=== PATIENT | male | born 1955 | race Caucasian/White ===

== ENCOUNTER → 2016-03-12 | Outpatient (CLI) | payer OTHER | LOC: RAD 10:17 | PROVIDERS: ATTEND Internal Medicine | DX: C34.12 Malignant neoplasm of upper lobe, left bronchus or lung (principal) | CPT/HCPCS: 70553; A9577 ==

== ENCOUNTER → 2016-03-16 | Outpatient (CLI) | payer OTHER | LOC: RAD 14:10 | PROVIDERS: ATTEND Internal Medicine | DX: C34.12 Malignant neoplasm of upper lobe, left bronchus or lung (principal) | CPT/HCPCS: 78815; A9552 ==

== ENCOUNTER 2016-03-27 08:19 | Outpatient (CLI) | payer OTHER ==
[~2016-03-27 08:19] MED LIST: CARBOPLATIN 250 MG in NORMAL SALINE 250 ML IV PRN; FAMOTIDINE INJ/PF 20 MG/2 ML SDV IV PRN; FOSAPREPITANT DIMEGLUMINE 150 MG in NORMAL SALINE 150 ML IV PRN; NORMAL SALINE 250 ML IV PRN; NORMAL SALINE IV PRN; ONDANSETRON HCL/PF 16 MG, DEXAMETHASONE SOD PHOSPHATE 10 MG in NORMAL SALINE 50 ML IV PRN; PACLITAXEL SEMI SYNTHETIC IV PRN
[2016-03-27] MEDS: DIPHENHYDRAMINE HCL 50 MG/ML VIAL IV PRN ×2 (10:51→11:15)
[2016-03-27 14:30] VITALS: BP 124/79
== END 2016-03-27 14:30 | disposition home or self-care (01) ==
LOC: II 08:19 → 5TH 08:22 → II 14:30
PROVIDERS: ATTEND Internal Medicine
PROC: 3E03305 Introduction of Other Antineoplastic into Peripheral Vein, Percutaneous Approach (ICD-10-PCS; principal; 2016-03-27)
PROC: 3E033GC Introduction of Other Therapeutic Substance into Peripheral Vein, Percutaneous Approach (ICD-10-PCS; 2016-03-27)
PROC: 3E0337Z Introduction of Electrolytic and Water Balance Substance into Peripheral Vein, Percutaneous Approach (ICD-10-PCS; 2016-03-27)
DX: Z51.11 Encounter for antineoplastic chemotherapy (principal); C34.12 Malignant neoplasm of upper lobe, left bronchus or lung
CPT/HCPCS: 96413; 96415; 96367; 96375; 96361; 96417; J1200; J9045; J2405; J7050; J9267; S0028; J1100; J1453; 96360; 96374

== ENCOUNTER 2016-04-03 11:41 | Outpatient (CLI) | payer OTHER ==
[~2016-04-03 11:41] MED LIST changes: +DIPHENHYDRAMINE HCL 50 MG/ML VIAL IV PRN
[2016-04-03 13:50] VITALS: BP 146/68
== END 2016-04-03 15:19 | disposition home or self-care (01) ==
LOC: II 11:41 → 5TH 11:45 → II 15:19
PROVIDERS: ATTEND Internal Medicine
PROC: 3E03305 Introduction of Other Antineoplastic into Peripheral Vein, Percutaneous Approach (ICD-10-PCS; principal; 2016-04-03)
PROC: 3E033GC Introduction of Other Therapeutic Substance into Peripheral Vein, Percutaneous Approach (ICD-10-PCS; 2016-04-03)
PROC: 3E0337Z Introduction of Electrolytic and Water Balance Substance into Peripheral Vein, Percutaneous Approach (ICD-10-PCS; 2016-04-03)
DX: Z51.11 Encounter for antineoplastic chemotherapy (principal); C34.12 Malignant neoplasm of upper lobe, left bronchus or lung
CPT/HCPCS: 96413; 96367; 96375; 96361; 96417; J1200; J9045; J2405; J7050; J9267; S0028; J1100; J1453; 96415

== ENCOUNTER 2016-04-10 09:27 | Outpatient (CLI) | payer OTHER ==
[2016-04-10 09:47] LABS: ABSOLUTE LYMPHOCYTES (AUTO) 0.6 10^3/uL (0.5-4.7); ABSOLUTE MONOCYTES (AUTO) 0.6 10^3/uL (0.1-1.4); ABSOLUTE NEUT (AUTO) 2.4 10^3/uL (1.7-8.2); BASOPHILS % (AUTO) 0.5 % (0-2); EOSINOPHILS % (AUTO) 1.3 % (0-6); HEMATOCRIT 47.6 % (37.9-51.0); HEMOGLOBIN 15.9 g/dL (13.5-17.0); HGB HCT DIFFERENCE 0.1; LYMPHOCYTES % (AUTO) 17.4 % (13-45); MEAN CORPUSCULAR HEMOGLOBIN 30.8 pg (27.0-33.4); MEAN CORPUSCULAR HGB CONC 33.5 g/dL (32.0-36.0); MEAN CORPUSCULAR VOLUME 92 fl (80-97); MONOCYTES % (AUTO) 16.3 % (3-13); RED BLOOD COUNT 5.18 10^6/uL (4.35-5.55); RED CELL DISTRIBUTION WIDTH 13.3 % (11.5-14.0); SEGMENTED NEUTROPHILS % (AUTO) 64.5 % (42-78); WHITE BLOOD COUNT 3.7 10^3/uL (4.0-10.5)
[2016-04-10 10:42] VITALS: BP 98/50
[2016-04-10 12:15] LABS: ALANINE AMINOTRANSFERASE 41 U/L (21-72); ALBUMIN 3.9 g/dL (3.5-5.0); ALKALINE PHOSPHATASE 112 U/L (38-126); ANION GAP 8 (5-19); ASPARTATE AMINO TRANSFERASE 28 U/L (17-59); BILIRUBIN,TOTAL 0.7 mg/dL (0.2-1.3); BLOOD UREA NITROGEN 8 mg/dL (7-20); CARBON DIOXIDE 29 mmol/L (22-30); CHLORIDE 95 mmol/L (98-107); CREATININE RESULT 0.68 mg/dL (0.52-1.25); GLUCOSE 105 mg/dL (75-110); POTASSIUM 5.1 mmol/L (3.6-5.0); SODIUM 131.8 mmol/L (137-145); TOTAL PROTEIN 6.8 g/dL (6.3-8.2)
== END 2016-04-10 14:07 | disposition home or self-care (01) ==
LOC: II 09:27 → 5TH 09:57 → II 14:07
PROVIDERS: ATTEND Internal Medicine
DX: Z51.11 Encounter for antineoplastic chemotherapy (principal); C34.12 Malignant neoplasm of upper lobe, left bronchus or lung; C77.1 Secondary and unspecified malignant neoplasm of intrathoracic lymph nodes
CPT/HCPCS: 96413; 96415; 96366; 96374; 96375; 96360; 36415; 85025; 80053; J1200; J9045; J2405; J7050; J9267; S0028; J1100; J1453

== ENCOUNTER 2016-04-17 09:53 | Outpatient (CLI) | payer OTHER ==
[2016-04-17 10:24] LABS: ABSOLUTE EOSINOPHILS # (AUTO) 0.1 10^3/uL (0.0-0.6); ABSOLUTE LYMPHOCYTES (AUTO) 0.6 10^3/uL (0.5-4.7); ABSOLUTE MONOCYTES (AUTO) 0.4 10^3/uL (0.1-1.4); ABSOLUTE NEUT (AUTO) 2.1 10^3/uL (1.7-8.2); BASOPHILS % (AUTO) 0.5 % (0-2); EOSINOPHILS % (AUTO) 1.8 % (0-6); HEMATOCRIT 42.3 % (37.9-51.0); HEMOGLOBIN 14.4 g/dL (13.5-17.0); HGB HCT DIFFERENCE 0.9; LYMPHOCYTES % (AUTO) 18.7 % (13-45); MEAN CORPUSCULAR HEMOGLOBIN 30.9 pg (27.0-33.4); MEAN CORPUSCULAR HGB CONC 34.2 g/dL (32.0-36.0); MEAN CORPUSCULAR VOLUME 91 fl (80-97); MONOCYTES % (AUTO) 13.4 % (3-13); RED BLOOD COUNT 4.67 10^6/uL (4.35-5.55); RED CELL DISTRIBUTION WIDTH 13.1 % (11.5-14.0); SEGMENTED NEUTROPHILS % (AUTO) 65.6 % (42-78); WHITE BLOOD COUNT 3.2 10^3/uL (4.0-10.5)
[2016-04-17 10:41] LABS: ALANINE AMINOTRANSFERASE 40 U/L (21-72); ALBUMIN 3.6 g/dL (3.5-5.0); ALKALINE PHOSPHATASE 121 U/L (38-126); ANION GAP 7 (5-19); ASPARTATE AMINO TRANSFERASE 27 U/L (17-59); BILIRUBIN,TOTAL 0.8 mg/dL (0.2-1.3); BLOOD UREA NITROGEN 8 mg/dL (7-20); CALCIUM 9.3 mg/dL (8.4-10.2); CARBON DIOXIDE 30 mmol/L (22-30); CHLORIDE 92 mmol/L (98-107); CREATININE RESULT 0.71 mg/dL (0.52-1.25); GLUCOSE 101 mg/dL (75-110); POTASSIUM 4.9 mmol/L (3.6-5.0); SODIUM 128.8 mmol/L (137-145); TOTAL PROTEIN 7.1 g/dL (6.3-8.2)
[2016-04-17 10:51] VITALS: BP 151/81
== END 2016-04-17 14:24 | disposition home or self-care (01) ==
LOC: II 09:53 → 5TH 10:05 → II 14:24
PROVIDERS: ATTEND Internal Medicine
PROC: 3E03305 Introduction of Other Antineoplastic into Peripheral Vein, Percutaneous Approach (ICD-10-PCS; principal; 2016-04-17)
PROC: 3E03305 Introduction of Other Antineoplastic into Peripheral Vein, Percutaneous Approach (ICD-10-PCS; 2016-04-17)
PROC: 3E033GC Introduction of Other Therapeutic Substance into Peripheral Vein, Percutaneous Approach (ICD-10-PCS; 2016-04-17)
PROC: 3E033GC Introduction of Other Therapeutic Substance into Peripheral Vein, Percutaneous Approach (ICD-10-PCS; 2016-04-17)
PROC: 3E0337Z Introduction of Electrolytic and Water Balance Substance into Peripheral Vein, Percutaneous Approach (ICD-10-PCS; 2016-04-17)
DX: C34.12 Malignant neoplasm of upper lobe, left bronchus or lung (principal); Z51.11 Encounter for antineoplastic chemotherapy
CPT/HCPCS: 96413; 96367; 96375; 96361; 96417; 36415; 85025; 80053; J1200; J9045; J2405; J7050; J9267; S0028; J1100; J1453; 96415

== ENCOUNTER 2016-04-24 09:48 | Outpatient (CLI) | payer OTHER, MEDICAID ==
[~2016-04-24 09:48] MED LIST changes: -CARBOPLATIN 250 MG in NORMAL SALINE 250 ML IV PRN; +CARBOPLATIN IV PRN; -NORMAL SALINE 250 ML IV PRN
[2016-04-24 10:15] VITALS: BP 131/71
[2016-04-24 10:48] LABS: ABSOLUTE LYMPHOCYTES (AUTO) 0.4 10^3/uL (0.5-4.7); ABSOLUTE MONOCYTES (AUTO) 0.2 10^3/uL (0.1-1.4); ABSOLUTE NEUT (AUTO) 1.8 10^3/uL (1.7-8.2); BASOPHILS % (AUTO) 0.3 % (0-2); EOSINOPHILS % (AUTO) 1.1 % (0-6); HEMATOCRIT 34.8 % (37.9-51.0); HEMOGLOBIN 12.1 g/dL (13.5-17.0); HGB HCT DIFFERENCE 1.5; LYMPHOCYTES % (AUTO) 15.6 % (13-45); MEAN CORPUSCULAR HEMOGLOBIN 31.2 pg (27.0-33.4); MEAN CORPUSCULAR HGB CONC 34.7 g/dL (32.0-36.0); MEAN CORPUSCULAR VOLUME 90 fl (80-97); MONOCYTES % (AUTO) 9.9 % (3-13); RED BLOOD COUNT 3.87 10^6/uL (4.35-5.55); RED CELL DISTRIBUTION WIDTH 12.7 % (11.5-14.0); SEGMENTED NEUTROPHILS % (AUTO) 73.1 % (42-78); WHITE BLOOD COUNT 2.5 10^3/uL (4.0-10.5)
[2016-04-24 11:04] LABS: ALANINE AMINOTRANSFERASE 30 U/L (21-72); ALBUMIN 3.7 g/dL (3.5-5.0); ALKALINE PHOSPHATASE 118 U/L (38-126); ANION GAP 8 (5-19); ASPARTATE AMINO TRANSFERASE 24 U/L (17-59); BILIRUBIN,TOTAL 0.8 mg/dL (0.2-1.3); BLOOD UREA NITROGEN 7 mg/dL (7-20); CALCIUM 8.8 mg/dL (8.4-10.2); CARBON DIOXIDE 28 mmol/L (22-30); CHLORIDE 92 mmol/L (98-107); CREATININE RESULT 0.72 mg/dL (0.52-1.25); GLUCOSE 77 mg/dL (75-110); POTASSIUM 4.2 mmol/L (3.6-5.0); SODIUM 128.3 mmol/L (137-145); TOTAL PROTEIN 6.8 g/dL (6.3-8.2)
[2016-04-24] MEDS: NORMAL SALINE 250 ML IV PRN ×2 (11:47→12:30)
== END 2016-04-24 15:11 | disposition home or self-care (01) ==
LOC: II 09:48 → 5TH 09:51 → II 15:11
PROVIDERS: ATTEND Internal Medicine
PROC: 3E033GC Introduction of Other Therapeutic Substance into Peripheral Vein, Percutaneous Approach (ICD-10-PCS; principal; 2016-04-24)
PROC: 3E033GC Introduction of Other Therapeutic Substance into Peripheral Vein, Percutaneous Approach (ICD-10-PCS; 2016-04-24)
PROC: 3E03305 Introduction of Other Antineoplastic into Peripheral Vein, Percutaneous Approach (ICD-10-PCS; 2016-04-24)
PROC: 3E03305 Introduction of Other Antineoplastic into Peripheral Vein, Percutaneous Approach (ICD-10-PCS; 2016-04-24)
DX: C34.12 Malignant neoplasm of upper lobe, left bronchus or lung (principal); Z51.11 Encounter for antineoplastic chemotherapy
CPT/HCPCS: 96413; 96367; 96375; 96417; 36415; 85025; 80053; J1200; J9045; J2405; J7050; J9267; S0028; J1100; J1453

== ENCOUNTER 2016-05-01 09:17 | Outpatient (CLI) | payer OTHER ==
[~2016-05-01 09:17] MED LIST changes: +CARBOPLATIN 250 MG in NORMAL SALINE 250 ML IV PRN; -CARBOPLATIN IV PRN; +NORMAL SALINE 250 ML IV PRN
[2016-05-01 09:55] LABS: HEMATOCRIT 34.2 % (37.9-51.0); HEMOGLOBIN 11.9 g/dL (13.5-17.0); HGB HCT DIFFERENCE 1.5; MEAN CORPUSCULAR HEMOGLOBIN 30.8 pg (27.0-33.4); MEAN CORPUSCULAR HGB CONC 34.9 g/dL (32.0-36.0); MEAN CORPUSCULAR VOLUME 88 fl (80-97); RED BLOOD COUNT 3.88 10^6/uL (4.35-5.55); RED CELL DISTRIBUTION WIDTH 12.5 % (11.5-14.0)
[2016-05-01 10:07] VITALS: BP 130/76
[2016-05-01 10:13] LABS: ALANINE AMINOTRANSFERASE 31 U/L (21-72); ALBUMIN 3.8 g/dL (3.5-5.0); ALKALINE PHOSPHATASE 84 U/L (38-126); ANION GAP 9 (5-19); ASPARTATE AMINO TRANSFERASE 24 U/L (17-59); BILIRUBIN,TOTAL 0.8 mg/dL (0.2-1.3); BLOOD UREA NITROGEN 7 mg/dL (7-20); CALCIUM 9.1 mg/dL (8.4-10.2); CARBON DIOXIDE 27 mmol/L (22-30); CHLORIDE 94 mmol/L (98-107); CREATININE RESULT 0.73 mg/dL (0.52-1.25); GLUCOSE 103 mg/dL (75-110); POTASSIUM 4.7 mmol/L (3.6-5.0); SODIUM 130.4 mmol/L (137-145); TOTAL PROTEIN 6.8 g/dL (6.3-8.2)
[2016-05-01 10:28] LABS: WHITE BLOOD COUNT 1.8 10^3/uL (4.0-10.5)
[2016-05-01 10:34] LABS: BAND NEUTROPHILS % (MANUAL) 1 % (3-5); BASOPHILS % (MANUAL) 0 % (0-2); EOSINOPHILS % (MANUAL) 2 % (0-6); LYMPHOCYTES % (MANUAL) 24 % (13-45); POLYCHROMASIA SLIGHT; TOTAL CELLS COUNTED 100; TOXIC GRANULATION SLIGHT
== END 2016-05-01 14:21 | disposition home or self-care (01) ==
LOC: II 09:17 → 5TH 09:18 → II 14:21
PROVIDERS: ATTEND Internal Medicine
PROC: 3E03305 Introduction of Other Antineoplastic into Peripheral Vein, Percutaneous Approach (ICD-10-PCS; principal; 2016-05-01)
PROC: 3E03305 Introduction of Other Antineoplastic into Peripheral Vein, Percutaneous Approach (ICD-10-PCS; 2016-05-01)
PROC: 3E033GC Introduction of Other Therapeutic Substance into Peripheral Vein, Percutaneous Approach (ICD-10-PCS; 2016-05-01)
PROC: 3E033GC Introduction of Other Therapeutic Substance into Peripheral Vein, Percutaneous Approach (ICD-10-PCS; 2016-05-01)
DX: C34.12 Malignant neoplasm of upper lobe, left bronchus or lung (principal); Z51.11 Encounter for antineoplastic chemotherapy
CPT/HCPCS: 96413; 96367; 96375; 96417; 36415; 85025; 80053; J1200; J9045; J2405; J7050; J9267; S0028; J1100; J1453; 96360; 96366; 96374; 96401; 96402; 96409; 96411

== ENCOUNTER → 2016-05-03 | Outpatient (CLI) | payer OTHER ==
[2016-05-03 15:29] LABS: HEMATOCRIT 34.4 % (37.9-51.0); HEMOGLOBIN 12.2 g/dL (13.5-17.0); HGB HCT DIFFERENCE 2.2; MEAN CORPUSCULAR HEMOGLOBIN 30.9 pg (27.0-33.4); MEAN CORPUSCULAR HGB CONC 35.4 g/dL (32.0-36.0); MEAN CORPUSCULAR VOLUME 87 fl (80-97); RED BLOOD COUNT 3.93 10^6/uL (4.35-5.55); RED CELL DISTRIBUTION WIDTH 12.7 % (11.5-14.0)
[2016-05-03 15:47] LABS: BASOPHILS % (MANUAL) 0 % (0-2); EOSINOPHILS % (MANUAL) 2 % (0-6); LYMPHOCYTES % (MANUAL) 18 % (13-45); TOTAL CELLS COUNTED 50
[2016-05-03 15:49] LABS: TOXIC GRANULATION SLIGHT; WHITE BLOOD COUNT 1.8 10^3/uL (4.0-10.5)
[2016-05-04 09:26] LABS: PATH REVIEW PATHOLOGIST REVIEWED
== END ==
LOC: LAB 15:03
PROVIDERS: ATTEND Radiology Radiation Oncology
DX: C34.12 Malignant neoplasm of upper lobe, left bronchus or lung (principal); C77.1 Secondary and unspecified malignant neoplasm of intrathoracic lymph nodes
CPT/HCPCS: 36415; 85025

== ENCOUNTER 2016-05-07 13:07 | Emergency (ER) | payer OTHER ==
--- NOTE | 2016-05-07 13:17 | ER Document Report ---
ED Medical Screen (RME) - General Chief Complaint: Shortness Of Breath Stated Complaint: SHORTNESS OF BREATH Mode of Arrival: Wheelchair Information source: Patient Notes: Patient presents from radiation oncology today with history of lung cancer with reports of fast heart rate, SOB. Pt denies CP. Reports he felt SOB. Reports hx of neuropathy. I have greeted and performed a rapid initial assessment of this patient. A comprehensive ED assessment and evaluation of the patient, analysis of test results and completion of the medical decision making process will be conducted by additional ED providers. TRAVEL OUTSIDE OF THE [place] IN LAST 30 DAYS: No - Related Data Allergies/Adverse Reactions: No Known Drug Allergies Allergy (Verified 05/07/16 13:10) Past Medical History - Social History Chew tobacco use (# tins/day): No Frequency of alcohol use: None Drug Abuse: None - Past Medical History Cardiac Medical History: Reports: Hx Hypertension Denies: Hx Coronary Artery Disease, Hx Heart Attack Pulmonary Medical History: Denies: Hx Asthma, Hx Bronchitis, Hx COPD, Hx Pneumonia, Hx Tuberculosis Neurological Medical History: Denies: Hx Cerebrovascular Accident, Hx Seizures Renal/ Medical History: Denies: Hx Peritoneal Dialysis Musculoskeltal Medical History: Reports Hx Arthritis - Knee's, feet Past Surgical History: Reports: Hx Appendectomy - Immunizations Hx Diphtheria, Pertussis, Tetanus Vaccination: Yes Physical Exam - Vital signs Vitals: Temp Pulse Resp BP Pulse Ox 97.4 F 84 20 108/66 100 05/07/16 13:10 05/07/16 13:10 05/07/16 13:10 05/07/16 13:10 05/07/16 13:10 Course - Vital Signs Vital signs: Temp Pulse Resp BP Pulse Ox 97.4 F 109 H 19 135/79 H 97 05/07/16 13:10 05/07/16 17:00 05/07/16 17:01 05/07/16 17:01 05/07/16 17:01 - Laboratory Result Diagrams: 05/07/16 13:40 05/07/16 13:30 Laboratory results interpreted by me: 05/07/16 05/07/16 05/07/16 13:30 13:40 13:40 WBC 1.5 L* RBC 3.59 L Hgb 11.2 L Hct 31.5 L Abs Neuts (Manual) 1.1 L Abs Lymphs (Manual) 0.3 L Sodium 128.1 L Chloride 95 L BUN 6 L NT-Pro-B Natriuret Pep 1710 H Doctor's Discharge - Discharge Clinical Impression: Dehydration, transient tachycardia Condition: Good Disposition: HOME, SELF-CARE Instructions: Dehydration ([facility]), Sinus Tachycardia ([facility]) Additional Instructions: Your vital signs have improved with IV hydration today. More likely were dehydrated. Your lab work and CT scan of her chest showed no signs of infection or PE. Please follow-up with your doctor tomorrow please drink plenty of fluids to stay hydrated at home. Referrals: KELLY HENDRIX MD [Primary Care Provider] - Follow up tomorrow
--- NOTE | 2016-05-07 13:48 | EKG REPORT ---
SEVERITY:- ABNORMAL ECG - SINUS TACHYCARDIA PROBABLE LEFT ATRIAL ABNORMALITY PROBABLE INFERIOR INFARCT, OLD : Confirmed by: Mayur Adams 07-May-2016 13:48:18
[2016-05-07 14:09] LABS: HEMATOCRIT 31.5 % (37.9-51.0); HEMOGLOBIN 11.2 g/dL (13.5-17.0); HGB HCT DIFFERENCE 2.1; MEAN CORPUSCULAR HEMOGLOBIN 31.1 pg (27.0-33.4); MEAN CORPUSCULAR HGB CONC 35.5 g/dL (32.0-36.0); MEAN CORPUSCULAR VOLUME 88 fl (80-97); RED BLOOD COUNT 3.59 10^6/uL (4.35-5.55); RED CELL DISTRIBUTION WIDTH 12.8 % (11.5-14.0)
[2016-05-07] MEDS ORDERED: NORMAL SALINE 1000 ML 1,000 ML IV ONE ×2 (14:17)
[2016-05-07 14:23] LABS: ALANINE AMINOTRANSFERASE 31 U/L (21-72); ALBUMIN 3.5 g/dL (3.5-5.0); ALKALINE PHOSPHATASE 83 U/L (38-126); ANION GAP 8 (5-19); ASPARTATE AMINO TRANSFERASE 21 U/L (17-59); BILIRUBIN,TOTAL 0.7 mg/dL (0.2-1.3); BLOOD UREA NITROGEN 6 mg/dL (7-20); CARBON DIOXIDE 25 mmol/L (22-30); CHLORIDE 95 mmol/L (98-107); GLUCOSE 103 mg/dL (75-110); POTASSIUM 4.1 mmol/L (3.6-5.0); SODIUM 128.1 mmol/L (137-145); TOTAL PROTEIN 6.4 g/dL (6.3-8.2)
[2016-05-07 14:28] LABS: PROTHROMBIN TIME 14.4 SEC (11.4-15.4)
[2016-05-07 14:29] LABS: PARTIAL THROMBOPLASTIN TIME 30.3 SEC (23.5-35.8)
[2016-05-07 14:33] LABS: WHITE BLOOD COUNT 1.5 10^3/uL (4.0-10.5)
[2016-05-07 15:08] LABS: BASOPHILS % (MANUAL) 0 % (0-2); EOSINOPHILS % (MANUAL) 0 % (0-6); LYMPHOCYTES % (MANUAL) 16 % (13-45); TOTAL CELLS COUNTED 50
[2016-05-07 15:09] LABS: RBC MORPHOLOGY COMMENT NORMO-CYTIC/CHROMIC; TOXIC GRANULATION 1+
--- NOTE | 2016-05-07 17:23 | ER Document Report ---
ED General - General Chief Complaint: Shortness Of Breath Stated Complaint: SHORTNESS OF BREATH Mode of Arrival: Wheelchair TRAVEL OUTSIDE OF THE [place] IN LAST 30 DAYS: No - HPI Patient complains to provider of: shortness of breath and tachycardia Notes: Patient coming in for evaluation of shortness of breath and tachycardia patient has a history of lung cancer and was receiving chemotherapy today when symptoms started patient's heart rate increased to approximately 160 patient was referred to the ER for further evaluation. Upon my evaluation patient is now resting at 130. Patient has no symptoms denies any shortness of breath denies any chest pain abdominal pain nausea vomiting fevers chills. - Related Data Allergies/Adverse Reactions: No Known Drug Allergies Allergy (Verified 05/07/16 13:10) Past Medical History - General Information source: Patient - Social History Smoking Status: Former Smoker Chew tobacco use (# tins/day): No Frequency of alcohol use: None Drug Abuse: None Family History: Reviewed & Not Pertinent Patient has suicidal ideation: No Patient has homicidal ideation: No - Past Medical History Cardiac Medical History: Reports: Hx Hypertension Denies: Hx Coronary Artery Disease, Hx Heart Attack Pulmonary Medical History: Denies: Hx Asthma, Hx Bronchitis, Hx COPD, Hx Pneumonia, Hx Tuberculosis Neurological Medical History: Denies: Hx Cerebrovascular Accident, Hx Seizures Renal/ Medical History: Denies: Hx Peritoneal Dialysis Musculoskeltal Medical History: Reports Hx Arthritis - Knee's, feet Past Surgical History: Reports: Hx Appendectomy - Immunizations Hx Diphtheria, Pertussis, Tetanus Vaccination: Yes Review of Systems - Review of Systems Constitutional: No symptoms reported EENT: No symptoms reported Cardiovascular: Palpitations Respiratory: Short of breath Gastrointestinal: No symptoms reported Genitourinary: No symptoms reported Male Genitourinary: No symptoms reported Musculoskeletal: No symptoms reported Skin: No symptoms reported Hematologic/Lymphatic: No symptoms reported Neurological/Psychological: No symptoms reported -: Yes All other systems reviewed and negative Physical Exam - Vital signs Vitals: Temp Pulse Resp BP Pulse Ox 97.4 F 84 20 108/66 100 05/07/16 13:10 05/07/16 13:10 05/07/16 13:10 05/07/16 13:10 05/07/16 13:10 Interpretation: Normal - General General appearance: Appears well, Alert - HEENT Head: Normocephalic, Atraumatic Eyes: Normal Pupils: PERRL - Respiratory Respiratory status: No respiratory distress Chest status: Nontender Breath sounds: Normal Chest palpation: Normal - Cardiovascular Rhythm: Tachycardia Heart sounds: Normal auscultation Murmur: No - Abdominal Inspection: Normal Distension: No distension Bowel sounds: Normal Tenderness: Nontender Organomegaly: No organomegaly - Back Back: Normal, Nontender - Extremities General upper extremity: Normal inspection, Nontender, Normal color, Normal ROM , Normal temperature General lower extremity: Normal inspection, Nontender, Normal color, Normal ROM , Normal temperature, Normal weight bearing. No: Ilya's sign - Neurological Neuro grossly intact: Yes Cognition: Normal Orientation: AAOx4 Valentine Coma Scale Eye Opening: Spontaneous [place] Coma Scale Verbal: Oriented Valentine Coma Scale Motor: Obeys Commands Ivania Coma Scale Total: 15 Speech: Normal Motor strength normal: LUE, RUE, LLE, RLE Sensory: Normal - Psychological Associated symptoms: Normal affect, Normal mood - Skin Skin Temperature: Warm Skin Moisture: Dry Skin Color: Normal Course - Re-evaluation Re-evalutation: 05/07/16 19:06 Patient laboratory showed neutropenia information is on chemotherapy and radiation. Patient does have an appointment to see his oncologist tomorrow. I did discuss patient's case with Dr. Damian. Patient's heart rate has improved with IV hydration more likely symptoms are due to dehydration as patient otherwise has a negative workup here. Patient will be discharged home - Vital Signs Vital signs: Temp Pulse Resp BP Pulse Ox 97.4 F 109 H 19 135/79 H 97 05/07/16 13:10 05/07/16 17:00 05/07/16 17:01 05/07/16 17:01 05/07/16 17:01 - Laboratory Result Diagrams: 05/07/16 13:40 05/07/16 13:30 Laboratory results interpreted by me: 05/07/16 05/07/16 05/07/16 13:30 13:40 13:40 WBC 1.5 L* RBC 3.59 L Hgb 11.2 L Hct 31.5 L Abs Neuts (Manual) 1.1 L Abs Lymphs (Manual) 0.3 L Sodium 128.1 L Chloride 95 L BUN 6 L NT-Pro-B Natriuret Pep 1710 H Critical Care Note - Critical Care Note Total time excluding time spent on procedures (mins): 35 Comments: Multiple evaluations for tachycardia Discharge - Discharge Clinical Impression: Dehydration, transient tachycardia Condition: Good Disposition: HOME, SELF-CARE Instructions: Sinus Tachycardia ([facility]), Dehydration ([facility]) Additional Instructions: Your vital signs have improved with IV hydration today. More likely were dehydrated. Your lab work and CT scan of her chest showed no signs of infection or PE. Please follow-up with your doctor tomorrow please drink plenty of fluids to stay hydrated at home. Referrals: KELLY HENDRIX MD [Primary Care Provider] - Follow up tomorrow
[2016-05-07 18:00] VITALS: BP 135/79
[2016-05-07 18:08] LABS: APPEARANCE,URINE CLEAR; BILIRUBIN,URINE NEGATIVE (NEGATIVE); GLUCOSE, URINE NEGATIVE (NEGATIVE); KETONES,URINE NEGATIVE (NEGATIVE); LEUKOCYTE ESTERASE,URINE NEGATIVE (NEGATIVE); NITRITE,URINE NEGATIVE (NEGATIVE); PROTEIN,URINE NEGATIVE (NEGATIVE); URINE SPECIFIC GRAVITY 1.033; UROBILINOGEN,URINE NEGATIVE mg/dL (<2.0)
== END 2016-05-07 18:06 | disposition home or self-care (01) ==
LOC: ER 13:07
DX: E86.0 Dehydration (principal); R00.0 Tachycardia, unspecified; R06.02 Shortness of breath; I10 Essential (primary) hypertension; C34.90 Malignant neoplasm of unspecified part of unspecified bronchus or lung; Z79.899 Other long term (current) drug therapy
CPT/HCPCS: 93005; 99291; 96360; 36415; 83735; 85025; 85610; 85730; 80053; 81001; 83880; 71010; 71275; 93010; J7030

== ENCOUNTER 2016-05-08 09:53 | Outpatient (CLI) | payer MEDICAID, OTHER ==
[2016-05-08 10:21] VITALS: BP 122/91
== END 2016-05-08 14:00 | disposition home or self-care (01) ==
LOC: II 09:53 → 5TH 09:54 → II 14:00
PROVIDERS: ATTEND Internal Medicine
PROC: 3E03305 Introduction of Other Antineoplastic into Peripheral Vein, Percutaneous Approach (ICD-10-PCS; principal; 2016-05-08)
PROC: 3E03305 Introduction of Other Antineoplastic into Peripheral Vein, Percutaneous Approach (ICD-10-PCS; 2016-05-08)
PROC: 3E033GC Introduction of Other Therapeutic Substance into Peripheral Vein, Percutaneous Approach (ICD-10-PCS; 2016-05-08)
PROC: 3E033GC Introduction of Other Therapeutic Substance into Peripheral Vein, Percutaneous Approach (ICD-10-PCS; 2016-05-08)
PROC: 3E033GC Introduction of Other Therapeutic Substance into Peripheral Vein, Percutaneous Approach (ICD-10-PCS; 2016-05-08)
PROC: 3E033GC Introduction of Other Therapeutic Substance into Peripheral Vein, Percutaneous Approach (ICD-10-PCS; 2016-05-08)
DX: C34.12 Malignant neoplasm of upper lobe, left bronchus or lung (principal); Z51.11 Encounter for antineoplastic chemotherapy
CPT/HCPCS: 96413; 96367; 96375; 96417; J1200; J9045; J2405; J7050; J9267; S0028; J1100; J1453; 96415

== ENCOUNTER → 2016-05-15 | Outpatient (CLI) | payer OTHER ==
[2016-05-15 18:34] LABS: ALANINE AMINOTRANSFERASE 32 U/L (21-72); ALBUMIN 3.9 g/dL (3.5-5.0); ALKALINE PHOSPHATASE 80 U/L (38-126); ANION GAP 11 (5-19); ASPARTATE AMINO TRANSFERASE 30 U/L (17-59); BILIRUBIN,DIRECT 0.4 mg/dL (0.0-0.4); BILIRUBIN,TOTAL 0.7 mg/dL (0.2-1.3); BLOOD UREA NITROGEN 6 mg/dL (7-20); CALCIUM 9.7 mg/dL (8.4-10.2); CARBON DIOXIDE 27 mmol/L (22-30); CHLORIDE 96 mmol/L (98-107); GLUCOSE 100 mg/dL (75-110); POTASSIUM 5.2 mmol/L (3.6-5.0); SODIUM 133.9 mmol/L (137-145)
== END ==
LOC: OD 17:09
PROVIDERS: ATTEND Internal Medicine
DX: C34.12 Malignant neoplasm of upper lobe, left bronchus or lung (principal)
CPT/HCPCS: 36415; 80053

== ENCOUNTER 2016-05-16 09:42 | Outpatient (CLI) | payer MEDICAID, OTHER ==
[2016-05-16] MEDS ORDERED: NORMAL SALINE 250 ML IV PRN (10:13)
[2016-05-16] MEDS ORDERED: ONDANSETRON HCL/PF 16 MG, DEXAMETHASONE SOD PHOSPHATE 10 MG in NORMAL SALINE 50 ML IV PRN (10:13)
[2016-05-16] MEDS ORDERED: DIPHENHYDRAMINE HCL 50 MG/ML VIAL IV PRN (10:14)
[2016-05-16] MEDS ORDERED: FAMOTIDINE INJ/PF 20 MG/2 ML SDV IV PRN (10:14)
[2016-05-16] MEDS ORDERED: FOSAPREPITANT DIMEGLUMINE 150 MG in NORMAL SALINE 150 ML IV PRN (10:15)
[2016-05-16] MEDS ORDERED: PACLITAXEL SEMI SYNTHETIC IV PRN (10:16)
[2016-05-16] MEDS ORDERED: NORMAL SALINE IV PRN (10:16)
[2016-05-16] MEDS ORDERED: CARBOPLATIN 250 MG in NORMAL SALINE 250 ML IV PRN (10:17)
[2016-05-16 10:53] LABS: ALANINE AMINOTRANSFERASE 36 U/L (21-72); ALBUMIN 3.8 g/dL (3.5-5.0); ALKALINE PHOSPHATASE 87 U/L (38-126); ANION GAP 12 (5-19); ASPARTATE AMINO TRANSFERASE 27 U/L (17-59); BILIRUBIN,DIRECT 0.2 mg/dL (0.0-0.4); BILIRUBIN,TOTAL 0.7 mg/dL (0.2-1.3); BLOOD UREA NITROGEN 6 mg/dL (7-20); CALCIUM 9.3 mg/dL (8.4-10.2); CARBON DIOXIDE 26 mmol/L (22-30); CHLORIDE 95 mmol/L (98-107); CREATININE RESULT 0.73 mg/dL (0.52-1.25); GLUCOSE 100 mg/dL (75-110); POTASSIUM 4.3 mmol/L (3.6-5.0); SODIUM 132.7 mmol/L (137-145); TOTAL PROTEIN 6.4 g/dL (6.3-8.2)
[2016-05-16 11:52] VITALS: BP 112/66
[2016-05-16] MEDS ORDERED: ONDANSETRON HCL INJ/PF 4 MG/2 ML SDV ONE (13:42)
[2016-05-16] MEDS ORDERED: DIPHENHYDRAMINE HCL 50 MG/ML VIAL IV ONE (14:00)
--- NOTE | 2016-05-16 18:31 | EKG REPORT ---
SEVERITY:- ABNORMAL ECG - ATRIAL FLUTTER 2:1 AVB : Confirmed by: Jose Nolan MD 16-May-2016 18:30:44
== END 2016-05-16 13:30 | disposition other institution (70) ==
LOC: II 09:42 → 5TH 10:02 → II 13:30
PROVIDERS: ATTEND Internal Medicine
DX: Z51.11 Encounter for antineoplastic chemotherapy (principal); C34.12 Malignant neoplasm of upper lobe, left bronchus or lung
CPT/HCPCS: 96413; 96415; 96366; 96367; 96375; 96417; 36415; 80053; 93005; 93010; J1200; J9045; J2405; J7050; S0028; J1100; J1453; 96360; 96365; 96374; J9267

== ENCOUNTER 2016-05-16 13:27 | Inpatient (IN) | payer MEDICAID, OTHER ==
--- NOTE | 2016-05-16 13:52 | ER Document Report ---
ED General - General Chief Complaint: Arrhythmia Stated Complaint: SHORTNESS OF BREATH Mode of Arrival: Wheelchair Information source: Patient Notes: 60 yr old male hx of lung ca presents from receiving chemo upstairs with sob, sinus tachycardia. pt denies any fevers or chills. no previous hx TRAVEL OUTSIDE OF THE [place] IN LAST 30 DAYS: No - HPI Onset: Just prior to arrival Onset/Duration: Sudden Quality of pain: No pain Severity: Mild Pain Level: Denies Associated symptoms: Shortness of breath Exacerbated by: Denies Relieved by: Denies Similar symptoms previously: No Recently seen / treated by doctor: No - Related Data Allergies/Adverse Reactions: No Known Drug Allergies Allergy (Verified 05/07/16 13:10) Past Medical History - Social History Smoking Status: Unknown if Ever Smoked Cigarette use (# per day): No Chew tobacco use (# tins/day): No Smoking Education Provided: No Family History: Reviewed & Not Pertinent - Past Medical History Cardiac Medical History: Reports: Hx Hypertension Denies: Hx Coronary Artery Disease, Hx Heart Attack Pulmonary Medical History: Denies: Hx Asthma, Hx Bronchitis, Hx COPD, Hx Pneumonia, Hx Tuberculosis Neurological Medical History: Denies: Hx Cerebrovascular Accident, Hx Seizures Renal/ Medical History: Denies: Hx Peritoneal Dialysis Musculoskeltal Medical History: Reports Hx Arthritis - Knee's, feet Past Surgical History: Reports: Hx Appendectomy - Immunizations Hx Diphtheria, Pertussis, Tetanus Vaccination: Yes Review of Systems - Review of Systems Notes: REVIEW OF SYSTEMS: CONSTITUTIONAL : Denies fever, chills, or sweats. Denies recent illness. EENT: Denies eye, ear, throat, or mouth pain or symptoms. Denies nasal or sinus congestion or discharge. Denies throat, tongue, or mouth swelling or difficulty swallowing. CARDIOVASCULAR: Denies chest pain. Denies palpitations or racing or irregular heart beat. Denies ankle edema. RESPIRATORY: Admits to shortness of breath GASTROINTESTINAL: Denies abdominal pain or distention. Denies nausea, vomiting , or diarrhea. Denies blood in vomitus, stools, or per rectum. Denies black, tarry stools. Denies constipation. GENITOURINARY: Denies difficulty urinating, painful urination, burning, frequency, blood in urine, or discharge. MUSCULOSKELETAL: Denies back or neck pain or stiffness. Denies joint pain or swelling. SKIN: Denies rash, lesions or sores. HEMATOLOGIC : Denies easy bruising or bleeding. LYMPHATIC: Denies swollen, enlarged glands. NEUROLOGICAL: Denies confusion or altered mental status. Denies passing out or loss of consciousness. Denies dizziness or lightheadedness. Denies headache. Denies weakness or paralysis or loss of use of either side. Denies problems with gait or speech. Denies sensory loss, numbness, or tingling. Denies seizures. PSYCHIATRIC: Denies anxiety or stress. Denies depression, suicidal ideation, or homicidal ideation. ALL OTHER SYSTEMS REVIEWED AND NEGATIVE. Dictation was performed using [employer] voice recognition software PHYSICAL EXAMINATION: GENERAL: Well-appearing, well-nourished and in no acute distress. HEAD: Atraumatic, normocephalic. EYES: Pupils equal round and reactive to light, extraocular movements intact, sclera anicteric, conjunctiva are normal. ENT: Nares patent, oropharynx clear without exudates. Moist mucous membranes. NECK: Normal range of motion, supple without lymphadenopathy LUNGS: Breath sounds clear to auscultation bilaterally and equal. No wheezes rales or rhonchi. HEART: Tachycardic ABDOMEN: Soft, nontender, nondistended abdomen. No guarding, no rebound. No masses appreciated. Musculoskeletal: Normal range of motion, no pitting or edema. No cyanosis. NEUROLOGICAL: Cranial nerves grossly intact. Normal speech, normal gait. Normal sensory, motor exams PSYCH: Normal mood, normal affect. SKIN: Warm, Dry, normal turgor, no rashes or lesions noted. Physical Exam - Vital signs Vitals: Resp Pulse Ox 22 H 97 05/16/16 13:33 05/16/16 13:33 Course - Re-evaluation Re-evalutation: 05/16/16 13:56 Patient noted to be in sinus tachycardia, hr in 160s, notes improvement with oxygenation nasal cannula. 05/16/16 14:47 pt hr resolved without intervention, cta negative, i believe since it occurred during chemo that the patient had a reaction to the medication 05/16/16 14:50 I spoke with patient's oncologist, they will hold back on chemotherapy for a week, and we'll pretreat him prior to other treatments. Given the patient stable at this time feels much better I will discharge home with close return precautions. i beleive the mildly elevated trop is secondary to the sinus tachycardia, t had no chest pain After performing a Medical Screening Examination, I estimate there is LOW risk for RUPTURED ESOPHAGUS, PNEUMOTHORAX, PULMONARY EMBOLISM, ACUTE CORONARY SYNDROME, OR THORACIC AORTIC DISSECTION, thus I consider the discharge disposition reasonable. The patient and I have discussed the diagnosis and risks , and we agree with discharging home with close follow-up. We also discussed returning to the Emergency Department immediately if new or worsening symptoms occur. We have discussed the symptoms which are most concerning (e.g., bloody sputum, worsening pain or shortness of breath) that necessitate immediate return. 05/16/16 14:54 05/16/16 14:54 - Vital Signs Vital signs: Temp Pulse Resp BP Pulse Ox 22 H 97 05/16/16 13:33 05/16/16 13:33 - Laboratory Result Diagrams: 05/16/16 13:49 05/16/16 13:49 Laboratory results interpreted by me: 05/16/16 05/16/16 13:49 13:49 WBC 2.5 L RBC 3.24 L Hgb 10.2 L Hct 28.9 L Seg Neutrophils % 90.9 H Lymphocytes % 5.4 L Absolute Lymphocytes 0.1 L Sodium 132.4 L Chloride 97 L BUN 6 L Glucose 172 H Creatine Kinase 32 L Total Protein 6.2 L Albumin 3.4 L - Diagnostic Test Radiology reviewed: Image reviewed, Reports reviewed - EKG Interpretation by Me EKG shows normal: Sinus rhythm, [place], Intervals, QRS Complexes Rate: Tachycardia Discharge - Discharge Clinical Impression: Sinus tachycardia, Medication reaction Condition: Stable Disposition: HOME, SELF-CARE Instructions: Sinus Tachycardia ([facility]) Referrals: KELLY HENDRIX MD [Primary Care Provider] - Follow up tomorrow
[2016-05-16 14:17] LABS: ABSOLUTE LYMPHOCYTES (AUTO) 0.1 10^3/uL (0.5-4.7); ABSOLUTE MONOCYTES (AUTO) 0.1 10^3/uL (0.1-1.4); ABSOLUTE NEUT (AUTO) 2.3 10^3/uL (1.7-8.2); BASOPHILS % (AUTO) 0.1 % (0-2); EOSINOPHILS % (AUTO) 0.2 % (0-6); HEMATOCRIT 28.9 % (37.9-51.0); HEMOGLOBIN 10.2 g/dL (13.5-17.0); HGB HCT DIFFERENCE 1.7; LYMPHOCYTES % (AUTO) 5.4 % (13-45); MEAN CORPUSCULAR HEMOGLOBIN 31.4 pg (27.0-33.4); MEAN CORPUSCULAR HGB CONC 35.1 g/dL (32.0-36.0); MEAN CORPUSCULAR VOLUME 89 fl (80-97); MONOCYTES % (AUTO) 3.4 % (3-13); RED BLOOD COUNT 3.24 10^6/uL (4.35-5.55); RED CELL DISTRIBUTION WIDTH 13.7 % (11.5-14.0); SEGMENTED NEUTROPHILS % (AUTO) 90.9 % (42-78); WHITE BLOOD COUNT 2.5 10^3/uL (4.0-10.5)
[2016-05-16 14:19] LABS: ALANINE AMINOTRANSFERASE 34 U/L (21-72); ALBUMIN 3.4 g/dL (3.5-5.0); ALKALINE PHOSPHATASE 78 U/L (38-126); ANION GAP 10 (5-19); ASPARTATE AMINO TRANSFERASE 27 U/L (17-59); BILIRUBIN,DIRECT 0.2 mg/dL (0.0-0.4); BILIRUBIN,TOTAL 0.7 mg/dL (0.2-1.3); BLOOD UREA NITROGEN 6 mg/dL (7-20); CALCIUM 8.5 mg/dL (8.4-10.2); CARBON DIOXIDE 25 mmol/L (22-30); CHLORIDE 97 mmol/L (98-107); CREATINE KINASE 32 U/L (55-170); CREATININE RESULT 0.72 mg/dL (0.52-1.25); GLUCOSE 172 mg/dL (75-110); POTASSIUM 4.1 mmol/L (3.6-5.0); SODIUM 132.4 mmol/L (137-145); TOTAL PROTEIN 6.2 g/dL (6.3-8.2)
[2016-05-16 14:28] LABS: CREATINE KINASE MB 0.25 ng/mL (<4.55)
[2016-05-16 14:31] LABS: TROPONIN I 0.081 ng/mL
[2016-05-16 15:18] LABS: VENOUS BLOOD BASE EXCESS -0.6 mmol/L; VENOUS BLOOD HCO3 25.7 mmol/L (20-32); VENOUS BLOOD PCO2 50.6 mmHg (35-63); VENOUS BLOOD PH 7.32 (7.30-7.42)
[2016-05-16] MEDS ORDERED: ACETAMINOPHEN 325 MG TABLET PO PRN (16:22)
[2016-05-16] MEDS ORDERED: ONDANSETRON HCL INJ/PF 4 MG/2 ML SDV IV PRN (16:22)
[2016-05-16] MEDS ORDERED: MAGNESIUM HYDROXIDE SUSP 30 ML UDCUP PO PRN (16:22)
--- NOTE | 2016-05-16 16:42 | PDOC H&P ---
History of Present Illness Admission Date/PCP: 05/16/16 16:05 KELLY HENDRIX MD Patient complains of: dizziness History of Present Illness: DOC LOMELI is a 60 year old male presents to the ED from the chemotherapy infusion suite when he suffered sudden onset of tachycardia. 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 During his infusion of chemotherapy this morning he started having a coughing fit followed by a sudden urge to defecate and by the time he arrived back to his chair after emptying his bowels he was very dizzy and his heart rate was noted to be elevated to the 150s. He was placed on oxygen and a rapid response was called at which time he was transported to the emergency department. He denies chest pain or palpitations. He denies fevers and chills, hemoptysis, purulent phlegm, melena, hematochezia, dysuria, nausea or vomiting. He states his appetite is been very poor since his radiation therapy began and he is been taking viscous lidocaine to help with esophageal pain and odynophagia. He freely admits very little oral intake over the last week or so. He is a former heavy drinker of at least a sixpack of beer daily but over the last week has cut back to more than 1 or 2 per day. He denies alcohol withdrawal or admission to the hospital for previous alcohol intoxication or withdrawal. He is a former heavy smoker with a 47-20-[id number]-year smoking history. He has no prior cardiac history and has never required stress testing or cardiology evaluation previously. There is a family history of coronary disease and atrial fibrillation. His mother from palpitations of alcoholism. Evaluation in the emergency department initially showed a sinus tachycardia and he was given IV fluids taking perhaps he was just hypovolemic. However they walked him in anticipation of discharge and he slipped into atrial fibrillation with rapid ventricular rate that resolved once he was placed back in bed at rest. Due to the paroxysmal nature of the tachycardia arrhythmia we were asked to admit for further evaluation and management. Past Medical History Cardiac Medical History: Reports: Hypertension Denies: Coronary Artery Disease, Myocardial Infarction Pulmonary Medical History: Denies: Asthma, Bronchitis, Chronic Obstructive Pulmonary Disease (COPD), Pneumonia, Tuberculosis Neurological Medical History: Denies: Seizures Malignancy Medical History: Reports: Lung Cancer Musculoskeltal Medical History: Reports: Arthritis - Knee's, feet Hematology: Denies: Anemia Past Surgical History Past Surgical History: Reports: Appendectomy Social History Smoking Status: Unknown if Ever Smoked Cigarettes Packs Per Day: 1.5 Frequency of Alcohol Use: Heavy Hx Recreational Drug Use: No Hx Prescription Drug Abuse: No - Advance Directive Resuscitation Status: Full Code Family History Family History: Reviewed & Not Pertinent Parental Family History Reviewed: Yes Children Family History Reviewed: Yes Sibling(s) Family History Reviewed.: Yes Medication/Allergy Home Medications: Alfuzosin HCl [Uroxatral] 10 mg PO MEALS 05/16/16 Amitriptyline HCl [Elavil 10 Mg Tablet] 10 mg PO DAILY 05/16/16 Nystatin/Dexameth/Diphen [Magic Mouthwash ([facility] Formula) Susp] 5 ml PO QID Propranolol HCl [Inderal 10 mg Tablet] 10 mg PO Q12 05/16/16 Allergies/Adverse Reactions: No Known Drug Allergies Allergy (Verified 05/07/16 13:10) Review of Systems Constitutional: ABSENT: chills, fever(s), headache(s), weight gain, weight loss Eyes: ABSENT: visual disturbances Ears: ABSENT: hearing changes Cardiovascular: ABSENT: chest pain, dyspnea on exertion, edema, orthropnea, palpitations Respiratory: PRESENT: cough, dyspnea. ABSENT: hemoptysis Gastrointestinal: ABSENT: abdominal pain, constipation, diarrhea, hematemesis, hematochezia, nausea, vomiting Genitourinary: ABSENT: dysuria, hematuria Musculoskeletal: ABSENT: joint swelling Integumentary: ABSENT: rash, wounds Neurological: ABSENT: abnormal gait, abnormal speech, confusion, dizziness, focal weakness, syncope Psychiatric: ABSENT: anxiety, depression Endocrine: ABSENT: cold intolerance, heat intolerance, polydipsia, polyuria Hematologic/Lymphatic: ABSENT: easy bleeding, easy bruising Physical Exam Vital Signs: Temp Pulse Resp BP Pulse Ox 12 128/77 H 100 05/16/16 16:00 05/16/16 15:01 05/16/16 16:00 PHYSICAL EXAM GENERAL: NAD, very pale; well developed, well nourished; no obese; alert and oriented to person, place, time, situation HEENT: normocephalic, atraumatic; EOMI, PERRLA, no conjunctival injection, no scleral icterus; oral mucosa dry, neck supple, no LAD, normal ROM RESPIRATORY: no accessory muscle use, no increased WOB, good air entry bilaterally; no wheezes, rales, rhonchi; bibasilar inspiratory crackles CARDIO: no JVD; no systolic murmur; sinus tachycardia on the monitor VASCULAR: no carotid bruit; no abdominal bruit; no pallor; 2+ radial, DP pulse ; normal capillary refill GI: soft; nondistended; normal bowel sounds; no rebound, rigidity, guarding; nontender NEURO: normal patella reflexes; normal sensation; normal motor function;no dysarthria; no nystagmus; tongue protrudes midline; MSK: 5/5 strength; normal ROM hips; ambulatory without assistance; no tenderness EXTREMITIES: no calf tender; no palpable cords in calf; no clubbing, cyanosis ; 1+ pedal edema PSYCH: normal affect, normal mood SKIN: warm; moist; no petechiae; no telengectasias; no jaundice; no rash Results Impressions: Chest/Abdomen CTA 05/16/16 13:44 IMPRESSION: No PE. No significant change. Assessment & Plan - Diagnosis (1) Atrial fibrillation Qualifiers: Atrial fibrillation type: paroxysmal Qualified Code(s): I48.0 - Paroxysmal atrial fibrillation Is this a current diagnosis for this admission?: YesPlan: Admit the patient to IMCU for careful hemodynamic monitoring. Begin empiric beta ridge and titrate to effect. Consult cardiology. Hold on anticoagulation until consultation with cardiology and his oncologist. Check magnesium and phosphorus and TSH for correctable metabolic causes. Check hemoglobin A1c. Check lipid panel in the morning. Trend cardiac enzymes to the night. Check echocardiogram. (2) Adenocarcinoma of left lung Is this a current diagnosis for this admission?: YesPlan: Currently receiving chemotherapy and radiation therapy. Consult oncology. (3) Alcohol dependence Qualifiers: Substance use status: uncomplicated Qualified Code(s): F10.20 - Alcohol dependence, uncomplicated Is this a current diagnosis for this admission?: YesPlan: Start empiric thiamine therapy and monitor for alcohol withdrawal. (4) Tobacco dependence Is this a current diagnosis for this admission?: YesPlan: Tobacco cessation counseling. Patient claims to have quit within the last 2 years. (5) Acute esophagitis Is this a current diagnosis for this admission?: YesPlan: Probably radiation-induced esophagitis. Treat topically, no evidence of oral Sharon. Probably contributes to some of his presentation due to lack of oral intake. Dietary consult. - Time Time Spent: Greater than 70 Minutes Medications reviewed and adjusted accordingly: Yes Anticipated discharge: Home Within: within 48 hours - Inpatient Certification Medical Necessity: Significant Comorbidiites Make Outpatient Treatment Too Risky , Need For IV Fluids, Need For Continuous Telemetry Monitoring, Risk of Complication if Not Cared For in Hospital
[2016-05-16 17:00] LABS: MAGNESIUM 1.5 mg/dL (1.6-2.3); PHOSPHORUS 3.7 mg/dL (2.5-4.5)
[2016-05-16] MEDS: THIAMINE HCL 100 MG TABLET PO SCH (17:34)
[2016-05-16] MEDS: METOPROLOL TARTRATE 25 MG TABLET PO SCH (17:35)
[2016-05-16] MEDS: RINGERS SOLUTION,LACTATED 1,000 ML IV PRN ×2 (17:36→19:15)
[2016-05-16] MEDS: DOCUSATE SODIUM 100 MG CAPSULE PO SCH (17:37)
[2016-05-16] MEDS ORDERED: DILTIAZEM HCL/D5W 125 ML IV PRN (19:00)
[2016-05-16] MEDS ORDERED: DILTIAZEM HCL INJ 25 MG/5 ML VIAL IV ONE (19:01)
[2016-05-16] MEDS ORDERED: DILTIAZEM HCL/D5W 125 MG/125 ML RTUINJ IV ONE (19:04)
[2016-05-16] MEDS: NYSTATIN/DEXAMETH/DIPHEN SUSP 120 ML PO SCH ×2 (20:06→22:38)
[2016-05-16] MEDS: MAGNESIUM SULFATE/D5W 1 GM/100 ML RTUPB IV SCH ×2 (20:21→21:12)
--- NOTE | 2016-05-16 20:59 | PDOC CONSULTATION ---
Consultation Consult Date: 05/16/16 Attending physician:: JUAN PABLO LEON Consult reason:: Atrial flutter fibrillation History of Present Illness Admission Date/PCP: 05/16/16 16:22 KELLY HENDRIX MD Patient complains of: Palpitations and shortness of breath History of Present Illness: 60-year-old male with known history of stage III non-small cell lung cancer. In 01/2016 he was found to have a large left upper lobe mass, mediastinal adenopathy. He has been initiated on concurrent chemoradiation. He is received almost all of his therapy, he only has 2 more radiation treatments. He received his last weekly dose of chemotherapy this week. When he was receiving chemotherapy yesterday, he completed all of his carboplatin, but as they're getting ready start the Taxol, he began having cough shortness of breath and he had tachycardia, his heart rate went in the 170s and 180s. There was concern of A. fib/flutter versus sinus tachycardia. Ultimately he was sent down to the ED, we elected not to complete the Taxol. In the ED he was monitored and went back into sinus rhythm. However when he got up and went to the restroom he went again in to tachycardia. This history was obtained, supplemented and confirmed. He was seen by me in the late evening and was noted to be in sinus rhythm. However it seems that he does not tolerate atrial flutter. He was noted to have almost typical flutter. Patient was noted to have low magnesium, which was being replaced. Patient was placed on Multaq so that he is maintained in sinus rhythm. As regards chronic anti-coagulation i.e. told the patient that we will discuss with the oncologist and after review of 2-D echocardiogram. Patient denied any chest pain. He denied any prior history of heart problems or coronary artery disease. He also denied any prior history of strokes or mini strokes. Past Medical History Cardiac Medical History: Reports: Hypertension Denies: Coronary Artery Disease, Myocardial Infarction Pulmonary Medical History: Denies: Asthma, Bronchitis, Chronic Obstructive Pulmonary Disease (COPD), Pneumonia, Tuberculosis Neurological Medical History: Denies: Seizures Malignancy Medical History: Reports: Lung Cancer Musculoskeltal Medical History: Reports: Arthritis - Knee's, feet Hematology: Denies: Anemia Past Surgical History Past Surgical History: Reports: Appendectomy Social History Information Source: Patient Smoking Status: Former Smoker Cigarettes Packs Per Day: 1.5 Number of Years Smokin Frequency of Alcohol Use: Social Hx Recreational Drug Use: No Drugs: None Hx Prescription Drug Abuse: No - Advance Directive Resuscitation Status: Full Code Family History Family History: Reviewed & Not Pertinent Parental Family History Reviewed: Yes Children Family History Reviewed: Yes Sibling(s) Family History Reviewed.: Yes Medication/Allergy Home Medications: Alfuzosin HCl [Uroxatral] 10 mg PO MEALS 05/16/16 Amitriptyline HCl [Elavil 10 Mg Tablet] 10 mg PO DAILY 05/16/16 Nystatin/Dexameth/Diphen [Magic Mouthwash (Omh Formula) Susp] 5 ml PO QID Propranolol HCl [Inderal 10 mg Tablet] 10 mg PO Q12 05/16/16 Allergies/Adverse Reactions: No Known Drug Allergies Allergy (Verified 05/07/16 13:10) Review of Systems Review of Systems: Please see history of present illness and past medical history as wall. Constitutional: No fever or chills reported. Head : No recent chronic headaches, recent head injury. Eyes: No recent eye pain, diplopia, redness, discharge, acute visual changes. Ears: No recent chronic ear pain, acute hearing loss, ear discharge. Oral cavity: No recent ulcerations, bleeding, oral cavity discomfort. Neck: No recent acute neck pain reported. Hematologic: No recent easy bruising or bleeding. Patient being treated for malignancy. Lymphatic: No recent lymphatic malignancy, chronic lymphadenopathy reported yet Cardiovascular system review: See history of present illness. Respiratory system review: No recent chronic cough, hemoptysis, blood clots in the lungs reported. Mild Shortness of breath on exertion Gastrointestinal system review: Negative for any recent acute or chronic abdominal pain, hematemesis, melena, recent change in bowel habits. Genitourinary system review: No recent acute or chronic hematuria, flank pain, UTI etc. reported. Skin system review: Negative for any recent abnormal bruising, no rash, no pruritus reported. Neurologic: No prior history of strokes, mini strokes, seizure disorder. Psychologic: No history of major psychosis or major depression reported. Musculoskeletal: Minor aches and pains reported. No acute joint swelling reported. Endocrine: No recent polyuria, polydipsia, recent heat or cold intolerance. Physical Exam Vital Signs: Temp Pulse Resp BP Pulse Ox 97.5 F 118 H 18 134/71 H 99 05/16/16 18:51 05/16/16 18:51 05/16/16 18:51 05/16/16 18:51 05/16/16 18:51 Intake & Output 05/15/16 05/16/16 05/17/16 06:59 06:59 06:59 Weight 93 kg Exam: GENERAL: well-nourished and in no acute distress. Alert and oriented x3. Patient does look pale. HEAD: Atraumatic, normocephalic. EYES: Pupils equal round and reactive to light, extraocular movements intact, sclera anicteric, conjunctiva are normal. ENT: TMs normal, nares patent, oropharynx clear without exudates. Moist mucous membranes. No oral ulcerations or bleeding gums noted NECK: supple without lymphadenopathy. Trachea is central. No cervical or axillary lymphadenopathy noted. Carotids are 2+, JVD WNL LUNGS: Respiration seems nonlabored, no significant accessory muscle action noted. Breath sounds clear to auscultation bilaterally and equal noted. No wheezes rales or rhonchi noted. No significant dullness noted on percussion. CHEST: Palpation of the chest wall shows no significant chest wall tenderness. No other significant abnormalities noted. HEART: [place] [employer] DIES, No PSH, 1/6 SUNSHINE aortic area, 1/6 ruano systolic murmur mitral area, no rubs, no gallops. ABDOMEN: Soft, no significant tenderness appreciated, normoactive bowel sounds. No guarding, no rebound. No rigidity noted . No masses appreciated. EXTREMITIES: Pedal pulses are 1-2+, no calf tenderness noted. No clubbing or cyanosis.trace to 1+ pedal edema noted NEUROLOGICAL: Focused neurological exam showed no significant neurologic deficit. Normal speech, no focal weakness appreciated. PSYCH: Normal mood, normal affect. Judgment and insight within normal limits. SKIN: No significant ecchymosis, rash, ulcerations or signs of pruritus noted. MUSCULOSKELETAL EXAM: No significant joint swelling noted. Results EKG Comments: Initial rhythm strip shows atrial flutter fibrillation. Subsequent rhythm strips tend to show typical flutter. Impressions: Chest/Abdomen CTA 05/16/16 13:44 IMPRESSION: No PE. No significant change. Assessment & Plan - Diagnosis (1) Atrial fibrillation and flutter Is this a current diagnosis for this admission?: Yes (2) Acute esophagitis Is this a current diagnosis for this admission?: Yes (3) Adenocarcinoma of left lung Is this a current diagnosis for this admission?: Yes (4) Sinus tachycardia Is this a current diagnosis for this admission?: Yes (5) Tobacco dependence Is this a current diagnosis for this admission?: Yes - Notes Notes: Patient currently in sinus rhythm. Review of EKG shows typical flutter. If there are contraindications for chronic anticoagulation will consider referral for ablation. In the meantime will start patient on Multaq. Need to consider chronic anticoagulation. Will discuss with oncologist. Addendum: Patient or history reviewed. Patient has chads score of 1. There is no clinical CHF. Need for chronic anticoagulation is basically a toss up and probably since patient is getting chemotherapy and has lung cancer, and there are contraindication. Therefore as a whole chronic anticoagulation is not being recommended at this point. If patient has recurrence of atrial flutter flutter, will then consider referring for ablation therapy. Patient encouraged to report any further problems. - Time Time Spent: 30 to 50 Minutes - CODE STATUS was discussed, patient remains full code. Surrogate decision-maker patient's brother. Multiple medical problems were addressed.More than 50% of the time spent coordinating care, discussing management plans with involved caregivers. Management plans discussed with involved personnels. Medical decision making was of moderate complexity.
[2016-05-16] MEDS: PANTOPRAZOLE SODIUM 40 MG VIAL IV SCH (21:12)
[2016-05-16] MEDS: DRONEDARONE HYDROCHLORIDE 400 MG TABLET PO SCH (22:43)
[2016-05-16] MEDS ORDERED: MAGNESIUM SULFATE/D5W 1 GM/100 ML RTUPB IV ONE (23:00)
[2016-05-17 04:00] LABS: CHOLESTEROL 141.71 mg/dL (0-200); Direct HDL 34 mg/dL (>40); MAGNESIUM 2.1 mg/dL (1.6-2.3); TRIGLYCERIDES 98 mg/dL (<150)
[2016-05-17 04:11] LABS: DIRECT LDL 82 mg/dL (<100)
[2016-05-17 04:47] LABS: HEMOGLOBIN 9.1 g/dL (13.5-17.0); HGB HCT DIFFERENCE 1.3; MEAN CORPUSCULAR HEMOGLOBIN 31.3 pg (27.0-33.4); MEAN CORPUSCULAR VOLUME 89 fl (80-97); RED BLOOD COUNT 2.91 10^6/uL (4.35-5.55); RED CELL DISTRIBUTION WIDTH 13.9 % (11.5-14.0); WHITE BLOOD COUNT 2.4 10^3/uL (4.0-10.5)
[2016-05-17 04:51] LABS: BASOPHILS % (MANUAL) 0 % (0-2); EOSINOPHILS % (MANUAL) 0 % (0-6); LYMPHOCYTES % (MANUAL) 6 % (13-45); TOTAL CELLS COUNTED 100
[2016-05-17 04:52] LABS: POLYCHROMASIA SLIGHT
[2016-05-17] MEDS: METOPROLOL TARTRATE 25 MG TABLET PO SCH ×2 (05:18→17:11)
[2016-05-17] MEDS: RINGERS SOLUTION,LACTATED 1,000 ML IV PRN ×2 (05:42→18:10)
[2016-05-17] MEDS ORDERED: ENOXAPARIN SODIUM INJ 40 MG/0.4 ML DISP.SYRIN SUBCUT SCH (08:00)
--- NOTE | 2016-05-17 08:04 | PDOC CONSULTATION ---
Consultation Consult Date: 05/17/16 Attending physician:: KEV COOLEY Consult reason:: Patient well-known to oncology clinic with stage III lung cancer currently receiving concurrent chemoradiation, here with A. fib/flutter History of Present Illness Admission Date/PCP: 05/16/16 16:22 KELLY HENDRIX MD Patient complains of: Tachycardia, shortness of breath, cough History of Present Illness: 60-year-old male with known history of stage III non-small cell lung cancer. We have been seeing him now for about 3 months. In 01/2016 he was found to have a large left upper lobe mass, mediastinal adenopathy. He has been initiated on concurrent chemoradiation. He is received almost all of his therapy, he only has 2 more radiation treatments. He received his last weekly dose of chemotherapy this week. When he was receiving chemotherapy yesterday, he completed all of his carboplatin, but as they're getting ready start the Taxol, he began having cough shortness of breath and he had tachycardia, his heart rate went in the 170s and 180s. There was concern of A. fib/flutter versus sinus tachycardia. Ultimately he was sent down to the ED, we elected not to complete the Taxol. In the ED he was monitored and went back into sinus rhythm. However when he got up and went to the restroom he went again in to tachycardia. He has been seen by cardiology who feels like he has gone into a flutter. So it seems like he has a paroxysmal A. fib/flutter going on. Overnight he seems to have done well, his heart rate is been appropriate. Past Medical History Cardiac Medical History: Reports: Hypertension Denies: Coronary Artery Disease, Myocardial Infarction Pulmonary Medical History: Denies: Asthma, Bronchitis, Chronic Obstructive Pulmonary Disease (COPD), Pneumonia, Tuberculosis Neurological Medical History: Denies: Seizures Malignancy Medical History: Reports: Lung Cancer Musculoskeltal Medical History: Reports: Arthritis - Knee's, feet Hematology: Denies: Anemia Past Surgical History Past Surgical History: Reports: Appendectomy, Other - CT-guided lung biopsy Social History Smoking Status: Former Smoker Cigarettes Packs Per Day: 1.5 Number of Years Smokin Frequency of Alcohol Use: Social Hx Recreational Drug Use: No Drugs: None Hx Prescription Drug Abuse: No - Advance Directive Resuscitation Status: Full Code Family History Family History: Reviewed & Not Pertinent Parental Family History Reviewed: Yes Children Family History Reviewed: Yes Sibling(s) Family History Reviewed.: Yes Medication/Allergy Home Medications: Alfuzosin HCl [Uroxatral] 10 mg PO MEALS 05/16/16 Amitriptyline HCl [Elavil 10 Mg Tablet] 10 mg PO DAILY 05/16/16 Nystatin/Dexameth/Diphen [Magic Mouthwash (Omh Formula) Susp] 5 ml PO QID Propranolol HCl [Inderal 10 mg Tablet] 10 mg PO Q12 05/16/16 Allergies/Adverse Reactions: No Known Drug Allergies Allergy (Verified 05/07/16 13:10) Review of Systems Constitutional: ABSENT: chills, fever(s), headache(s), weight gain, weight loss Eyes: ABSENT: visual disturbances Ears: ABSENT: hearing changes Cardiovascular: ABSENT: chest pain, dyspnea on exertion, edema, orthropnea, palpitations Respiratory: ABSENT: cough, hemoptysis Gastrointestinal: ABSENT: abdominal pain, constipation, diarrhea, hematemesis, hematochezia, nausea, vomiting Genitourinary: ABSENT: dysuria, hematuria Musculoskeletal: ABSENT: joint swelling Integumentary: ABSENT: rash, wounds Neurological: ABSENT: abnormal gait, abnormal speech, confusion, dizziness, focal weakness, syncope Psychiatric: ABSENT: anxiety, depression, homidical ideation, suicidal ideation Endocrine: ABSENT: cold intolerance, heat intolerance, polydipsia, polyuria Hematologic/Lymphatic: ABSENT: easy bleeding, easy bruising Physical Exam Vital Signs: Temp Pulse Resp BP Pulse Ox 97.7 F 79 18 140/67 H 100 05/17/16 07:26 05/17/16 07:26 05/17/16 07:26 05/17/16 07:26 05/17/16 07:26 Intake & Output 05/16/16 05/17/16 05/18/16 06:59 06:59 06:59 Intake Total 1142 Balance 1142 Weight 94.7 kg General appearance: PRESENT: no acute distress, well-developed, well-nourished Head exam: PRESENT: atraumatic, normocephalic Eye exam: PRESENT: conjunctiva pink, EOMI, PERRLA. ABSENT: scleral icterus Ear exam: PRESENT: normal external ear exam Mouth exam: PRESENT: moist, tongue midline Neck exam: ABSENT: carotid bruit, JVD, lymphadenopathy, thyromegaly Respiratory exam: PRESENT: clear to auscultation suni. ABSENT: rales, rhonchi, wheezes Cardiovascular exam: PRESENT: RRR. ABSENT: diastolic murmur, rubs, systolic murmur Pulses: PRESENT: normal dorsalis pedis pul Vascular exam: PRESENT: normal capillary refill GI/Abdominal exam: PRESENT: normal bowel sounds, soft. ABSENT: distended, guarding, mass, organolmegaly, rebound, tenderness Rectal exam: PRESENT: deferred Extremities exam: PRESENT: full ROM. ABSENT: calf tenderness, clubbing, pedal edema Neurological exam: PRESENT: alert, awake, oriented to person, oriented to place , oriented to time, oriented to situation, CN II-XII grossly intact. ABSENT: motor sensory deficit Psychiatric exam: PRESENT: appropriate affect, normal mood. ABSENT: homicidal ideation, suicidal ideation Skin exam: PRESENT: dry, intact, warm. ABSENT: cyanosis, rash Results Laboratory Results: 05/17/16 03:41 05/17/16 05/17/16 03:41 03:41 WBC 2.4 L RBC 2.91 L Hgb 9.1 L Hct 26.0 L MCV 89 MCH 31.3 MCHC 35.0 RDW 13.9 Plt Count 247 Seg Neutrophils % Not Reportable Lymphocytes % Not Reportable Monocytes % Not Reportable Eosinophils % Not Reportable Basophils % Not Reportable Absolute Neutrophils Not Reportable Absolute Lymphocytes Not Reportable Absolute Monocytes Not Reportable Absolute Eosinophils Not Reportable Absolute Basophils Not Reportable Magnesium 2.1 Triglycerides 98 Cholesterol 141.71 LDL Cholesterol Direct 82 VLDL Cholesterol 20.0 HDL Cholesterol 34 L 05/16/16 05/16/16 05/17/16 20:35 21:50 03:41 Troponin I Cancelled 0.052 0.045 Impressions: Chest/Abdomen CTA 05/16/16 13:44 IMPRESSION: No PE. No significant change. Assessment & Plan - Diagnosis (1) Atrial fibrillation and flutter Is this a current diagnosis for this admission?: YesPlan: He is currently being managed by hospitalist team and cardiology, agree with management so far. Agree with rate control medication, cardiology brought up the idea of anticoagulation for stroke prevention. We would be okay with this approach as well. Further management per cardiology and hospitalist team. I don't believe the chemotherapy had a direct effect on this, but given the patient's smoking history and comorbidities certainly these arrhythmias are common. (2) Adenocarcinoma of left lung Is this a current diagnosis for this admission?: YesPlan: Stage III adenocarcinoma of the lung, he has had an excellent response to therapy, I went over the images at length with patient, he has had greater than a 50% response thus far. He will require 2 more full doses of carbo/Taxol. So he will certainly need good rate control prior to us being able to give that. He has had difficult IV access, so we can consider port placement as an outpatient, but he will only require 2 more IV infusions total. We will make this decision as an outpatient. He will require 2 more doses of radiation therapy, he should go down for radiation therapy today. - Time Time Spent: Greater than 70 Minutes Critical Time spent with patient: 35 or more minutes - Inpatient Certification Based on my medical assessment, after consideration of the patient's comorbidities, presenting symptoms, or acuity I expect that the services needed warrant INPATIENT care.: Yes I certify that my determination is in accordance with my understanding of Medicare's requirements for reasonable and necessary INPATIENT services [42 CFR 412.3e].: Yes Medical Necessity: Need For Continuous Telemetry Monitoring, Risk of Complication if Not Cared For in Hospital
[2016-05-17] MEDS: DRONEDARONE HYDROCHLORIDE 400 MG TABLET PO SCH ×2 (10:18→21:28)
[2016-05-17] MEDS: NYSTATIN/DEXAMETH/DIPHEN SUSP 120 ML PO SCH ×4 (10:18→21:29)
[2016-05-17] MEDS: PANTOPRAZOLE SODIUM 40 MG VIAL IV SCH ×2 (10:18→21:28)
[2016-05-17] MEDS: DOCUSATE SODIUM 100 MG CAPSULE PO SCH ×2 (10:19→17:25)
[2016-05-17] MEDS: PANTOT AC/MIN OIL/PET HY-PHL OINT 50 GM TOP PRN (14:14)
--- NOTE | 2016-05-17 14:46 | PDOC PROGRESS REPORT ---
Subjective Progress Note for:: 05/17/16 Subjective:: Reason for visit: New onset atrial fibrillation Hospital course: DOC LOMELI is a 60 year old male presents to the ED from the chemotherapy infusion suite when he suffered sudden onset of tachycardia. 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 During his infusion of chemotherapy this morning he started having a coughing fit followed by a sudden urge to defecate and by the time he arrived back to his chair after emptying his bowels he was very dizzy and his heart rate was noted to be elevated to the 150s. He was placed on oxygen and a rapid response was called at which time he was transported to the emergency department. He denies chest pain or palpitations. He denies fevers and chills , hemoptysis, purulent phlegm, melena, hematochezia, dysuria, nausea or vomiting. He states his appetite is been very poor since his radiation therapy began and he is been taking viscous lidocaine to help with esophageal pain and odynophagia. He freely admits very little oral intake over the last week or so. He is a former heavy drinker of at least a sixpack of beer daily but over the last week has cut back to more than 1 or 2 per day. He denies alcohol withdrawal or admission to the hospital for previous alcohol intoxication or withdrawal. He is a former heavy smoker with a [id number]-year smoking history. He has no prior cardiac history and has never required stress testing or cardiology evaluation previously. There is a family history of coronary disease and atrial fibrillation. His mother from palpitations of alcoholism. Evaluation in the emergency department initially showed a sinus tachycardia and he was given IV fluids taking perhaps he was just hypovolemic. However they walked him in anticipation of discharge and he slipped into atrial fibrillation with rapid ventricular rate that resolved once he was placed back in bed at rest. Due to the paroxysmal nature of the tachycardia arrhythmia we were asked to admit for further evaluation and management. Patient was admitted to the hospital and most immediately slipped back into atrial fibrillation with a rapid ventricular response; he was given a bolus of Cardizem and converted again to normal sinus rhythm where he is remain through the night. Oncology and cardiology have consulted and are recommending rhythm control with multaq and initiating anticoagulation. Subjective: Denies chest pain, palpitations, nausea, vomiting, diarrhea, fevers or chills. In fact feels better than when he arrived. ROS: per HPI plus a total of 10 systems reviewed, pertinent positives and negatives noted above, remaining systems negative. Physical Exam Vital Signs: Temp Pulse Resp BP Pulse Ox 97.5 F 76 18 106/53 L 100 05/17/16 11:02 05/17/16 11:02 05/17/16 11:02 05/17/16 11:02 05/17/16 11:02 Intake & Output 05/16/16 05/17/16 05/18/16 06:59 06:59 06:59 Intake Total 1142 Balance 1142 Weight 94.7 kg PHYSICAL EXAM GENERAL: NAD, very pale; well developed, well nourished; no obese; alert and oriented to person, place, time, situation HEENT: normocephalic, atraumatic; EOMI, PERRLA, no conjunctival injection, no scleral icterus; oral mucosa dry, neck supple, no LAD, normal ROM RESPIRATORY: no accessory muscle use, no increased WOB, good air entry bilaterally; no wheezes, rales, rhonchi; bibasilar inspiratory crackles CARDIO: no JVD; no systolic murmur; sinus rhythm on the monitor VASCULAR: no carotid bruit; no abdominal bruit; no pallor; 2+ radial, DP pulse ; normal capillary refill GI: soft; nondistended; normal bowel sounds; no rebound, rigidity, guarding; nontender NEURO: normal patella reflexes; normal sensation; normal motor function;no dysarthria; no nystagmus; tongue protrudes midline; MSK: 5/5 strength; normal ROM hips; ambulatory without assistance; no tenderness EXTREMITIES: no calf tender; no palpable cords in calf; no clubbing, cyanosis ; 1+ pedal edema PSYCH: normal affect, normal mood SKIN: warm; moist; no petechiae; no telengectasias; no jaundice; no rash Results Laboratory Results: 05/17/16 03:41 05/17/16 05/17/16 03:41 03:41 WBC 2.4 L RBC 2.91 L Hgb 9.1 L Hct 26.0 L MCV 89 MCH 31.3 MCHC 35.0 RDW 13.9 Plt Count 247 Seg Neutrophils % Not Reportable Lymphocytes % Not Reportable Monocytes % Not Reportable Eosinophils % Not Reportable Basophils % Not Reportable Absolute Neutrophils Not Reportable Absolute Lymphocytes Not Reportable Absolute Monocytes Not Reportable Absolute Eosinophils Not Reportable Absolute Basophils Not Reportable Magnesium 2.1 Triglycerides 98 Cholesterol 141.71 LDL Cholesterol Direct 82 VLDL Cholesterol 20.0 HDL Cholesterol 34 L 05/16/16 05/16/16 05/17/16 20:35 21:50 03:41 Troponin I Cancelled 0.052 0.045 05/17/16 10:00 Troponin I 0.051 Impressions: Chest/Abdomen CTA 05/16/16 13:44 IMPRESSION: No PE. No significant change. Assessment & Plan - Diagnosis (1) Atrial fibrillation Qualifiers: Atrial fibrillation type: paroxysmal Qualified Code(s): I48.0 - Paroxysmal atrial fibrillation Is this a current diagnosis for this admission?: YesPlan: Cardiology consultation, recommending multiaccess for rate and rhythm control. Will monitor overnight and check EKG in the morning for correct QT interval. Await echocardiogram. (2) Adenocarcinoma of left lung Is this a current diagnosis for this admission?: Yes (3) Alcohol dependence Qualifiers: Substance use status: uncomplicated Qualified Code(s): F10.20 - Alcohol dependence, uncomplicated Is this a current diagnosis for this admission?: Yes (4) Tobacco dependence Is this a current diagnosis for this admission?: Yes (5) Acute esophagitis Is this a current diagnosis for this admission?: Yes - Time Time Spent with patient: 25-34 minutes
[2016-05-17] MEDS: THIAMINE HCL 100 MG TABLET PO SCH (17:11)
[2016-05-17] MEDS: APIXABAN 5 MG TABLET PO SCH (17:12)
--- NOTE | 2016-05-17 18:38 | XCELERA REPORT ---
[address] [address] Transthoracic Echocardiogram Report Name: DOC LOMELI Age: 60 yrs Gender: Male : 1955 Patient Status: Inpatient Patient Location: [id number]\S\336\S\A Study Date: 05/17/2016 08:41 AM Height: 71 in Weight: 205 lb BSA: 2.1 m2 Procedure: A complete two-dimensional transthoracic echocardiogram was performed (2D, M-mode, spectral and color flow Doppler). The study was technically difficult with many images being suboptimal in quality. Reason For Study: atrial flutter Ordering Physician: MAYUR CALLAHAN Performed By: Thad Griffith Interpretation Summary The left ventricular ejection fraction is normal. LV diastolic function could not be adequately assessed. There is mild concentric left ventricular hypertrophy. The left ventricle is grossly normal size. Wall motion cannot be accurately commented on, but no definite regional wall motion abnormalities noted. The right ventricular systolic function is normal. The left atrium is mildly dilated. The right atrium is normal in size There is a mild amount of mitral regurgitation There is no mitral valve stenosis. There is a mild amount of aortic regurgitation There is no aortic valve stenosis There is a trace to mild amount of tricuspid regurgitation There is mild pulmonary hypertension by echo Right ventricular systolic pressure is estimated to be elevated at 30- 40mmHg. There is no pericardial effusion. MMode/2D Measurements \T\ Calculations RVDd: 3.0 cm LVIDd: 4.9 cm FS: 19.1 % Ao root diam: IVSd: 1.1 cm LVIDs: 4.0 cm EDV(Teich): 3.1 cm LVPWd: 1.2 cm 114.7 ml Ao root area: ESV(Teich): 69.6 ml 7.5 cm2 EF(Teich): 39.3 % LA dimension: 4.1 cm LVLd ap4: 9.1 cm SV(MOD-sp4): EDV(MOD-sp4): 80.0 ml 158.0 ml LVLs ap4: 7.7 cm ESV(MOD-sp4): 78.0 ml EF(MOD-sp4): 50.6 % Doppler Measurements \T\ Calculations MV E max nathanael: MV P1/2t max nathanael: Ao V2 max: AI max nathanael: 82.7 cm/sec 84.0 cm/sec 113.3 cm/sec 302.0 cm/sec MV A max nathanael: MV P1/2t: 56.3 msec Ao max PG: AI max P.5 cm/sec MVA(P1/2t): 3.9 cm2 5.1 mmHg 38.1 mmHg MV E/A: 1.1 MV dec slope: AI dec slope: 437.0 cm/sec2 192.0 cm/sec2 AI P1/2t: 460.7 msec LV V1 max PG: PA V2 max: TR max nathanael: RAP systole: 2.9 mmHg 73.5 cm/sec 240.0 cm/sec 10.0 mmHg LV V1 max: PA max P.2 mmHg TR max P.4 cm/sec 23.2 mmHg RVSP(TR): 33.2 mmHg Left Ventricle The left ventricle is grossly normal size. There is mild concentric left ventricular hypertrophy. The left ventricular ejection fraction is normal. LV diastolic function could not be adequately assessed. Wall motion cannot be accurately commented on, but no definite regional wall motion abnormalities noted. Right Ventricle The right ventricle is grossly normal size. There is normal right ventricular wall thickness. The right ventricular systolic function is normal. Atria The right atrium is normal in size. The left atrium is mildly dilated. Interarterial septum not well visualized and not well dopplered. Cannot comment on ASD/PFO presence. Mitral Valve The mitral valve is grossly normal. There is no mitral valve stenosis. There is a mild amount of mitral regurgitation. Aortic Valve The aortic valve is grossly normal. There is no aortic valve stenosis. There is a mild amount of aortic regurgitation. Tricuspid Valve The tricuspid valve is not well visualized secondary to technical limitations. There is no tricuspid stenosis. There is a trace to mild amount of tricuspid regurgitation. There is mild pulmonary hypertension by echo. Right ventricular systolic pressure is estimated to be elevated at 30-40mmHg. Pulmonic Valve The pulmonic valve is not well visualized. Great Vessels The aortic root is not well visualized but is probably normal size. The inferior vena cava was not well visualized. Effusions There is no pericardial effusion. : MAYUR CALLAHAN > Mayur Callahan
--- NOTE | 2016-05-17 18:52 | PDOC PROGRESS REPORT ---
Subjective Progress Note for:: 05/17/16 Subjective:: Patient seems to be doing better. Patient still looks pale but seems significantly improved. Pt is denying any chest arm or neck discomfort. Patient denying any PND, orthopnea. Patient denied any sustained palpitations, dizziness, syncope, near syncope. Patient denying any fever chills. Patient denying any other significant discomfort. Patient is maintaining sinus rhythm. Review of systems: Rest review of systems negative. Medications: Medications have been reviewed. Physical Exam Vital Signs: Temp Pulse Resp BP Pulse Ox 97.2 F 86 16 126/69 H 100 05/17/16 15:27 05/17/16 15:27 05/17/16 15:27 05/17/16 15:27 05/17/16 15:27 Intake & Output 05/16/16 05/17/16 05/18/16 06:59 06:59 06:59 Intake Total 1142 1774 Balance 1142 1774 Weight 94.7 kg Exam: GENERAL: well-nourished and in no acute distress. Alert and oriented x3 HEAD: Atraumatic, normocephalic. EYES: Pupils equal round and reactive to light, extraocular movements intact, sclera anicteric, conjunctiva are normal. ENT: TMs normal, nares patent, oropharynx clear without exudates. Moist mucous membranes. No oral ulcerations or bleeding gums noted NECK: supple without lymphadenopathy. Trachea is central. No cervical or axillary lymphadenopathy noted. Carotids are 2+, JVD WNL LUNGS: Respiration seems nonlabored, no significant accessory muscle action noted. Breath sounds clear to auscultation bilaterally and equal noted. No wheezes rales or rhonchi noted. No significant dullness noted on percussion. CHEST: Palpation of the chest wall shows no significant chest wall tenderness. No other significant abnormalities noted. 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 ABDOMEN: Soft, no significant tenderness appreciated, normoactive bowel sounds. No guarding, no rebound. No rigidity noted . No masses appreciated. EXTREMITIES: Pedal pulses are 1-2+, no calf tenderness noted. No clubbing or cyanosis.trace to 1+ pedal edema noted NEUROLOGICAL: Focused neurological exam showed no significant neurologic deficit. Normal speech, no focal weakness appreciated. PSYCH: Normal mood, normal affect. Judgment and insight within normal limits. SKIN: No significant ecchymosis, rash, ulcerations or signs of pruritus noted. MUSCULOSKELETAL EXAM: No significant joint swelling noted. Results Laboratory Results: 05/17/16 03:41 05/17/16 05/17/16 03:41 03:41 WBC 2.4 L RBC 2.91 L Hgb 9.1 L Hct 26.0 L MCV 89 MCH 31.3 MCHC 35.0 RDW 13.9 Plt Count 247 Seg Neutrophils % Not Reportable Lymphocytes % Not Reportable Monocytes % Not Reportable Eosinophils % Not Reportable Basophils % Not Reportable Absolute Neutrophils Not Reportable Absolute Lymphocytes Not Reportable Absolute Monocytes Not Reportable Absolute Eosinophils Not Reportable Absolute Basophils Not Reportable Magnesium 2.1 Triglycerides 98 Cholesterol 141.71 LDL Cholesterol Direct 82 VLDL Cholesterol 20.0 HDL Cholesterol 34 L 05/16/16 05/16/16 05/17/16 20:35 21:50 03:41 Troponin I Cancelled 0.052 0.045 05/17/16 10:00 Troponin I 0.051 Impressions: Chest/Abdomen CTA 05/16/16 13:44 IMPRESSION: No PE. No significant change. Assessment & Plan - Diagnosis (1) Atrial fibrillation and flutter Is this a current diagnosis for this admission?: Yes (2) Acute esophagitis Is this a current diagnosis for this admission?: Yes (3) Adenocarcinoma of left lung Is this a current diagnosis for this admission?: Yes (4) Sinus tachycardia Is this a current diagnosis for this admission?: Yes (5) Tobacco dependence Is this a current diagnosis for this admission?: Yes - Notes Notes: Atrial flutter fibrillation: Continue Multaq therapy. If there are frequent recurrences, we will consider referral for ablation. Acute esophagitis: Probably related to radiation and chemotherapy. Leave management plans to oncologist. Adenocarcinoma of the left lung: Patient being followed by oncologist. Sinus tachycardia: Probably related to metabolic problems. TSH was noted to be within normal limit. 2-D echocardiogram shows normal LVEF and no significant valvular disease. - Time Time with patient: 15-25 minutes - CODE STATUS was discussed, patient remains full code. Surrogate decision-maker unchanged. Multiple medical problems were addressed.More than 50% of the time spent coordinating care, discussing management plans with involved caregivers. Management plans discussed with involved personnels. Medical decision making was of moderate complexity.
[2016-05-18] MEDS: PANTOT AC/MIN OIL/PET HY-PHL OINT 50 GM TOP PRN (00:24)
[2016-05-18] MEDS: RINGERS SOLUTION,LACTATED 1,000 ML IV PRN (05:15)
[2016-05-18] MEDS: METOPROLOL TARTRATE 25 MG TABLET PO SCH (05:18)
--- NOTE | 2016-05-18 07:16 | EKG REPORT ---
SEVERITY:- BORDERLINE ECG - SINUS RHYTHM PROBABLE LEFT ATRIAL ABNORMALITY : Confirmed by: Jose Nolan MD 18-May-2016 07:16:19
[2016-05-18 07:20] LABS: ANION GAP 8 (5-19); BLOOD UREA NITROGEN 4 mg/dL (7-20); CALCIUM 9.1 mg/dL (8.4-10.2); CARBON DIOXIDE 27 mmol/L (22-30); CHLORIDE 104 mmol/L (98-107); CREATININE RESULT 0.67 mg/dL (0.52-1.25); GLUCOSE 82 mg/dL (75-110); MAGNESIUM 1.7 mg/dL (1.6-2.3); POTASSIUM 3.8 mmol/L (3.6-5.0); SODIUM 139.1 mmol/L (137-145)
--- NOTE | 2016-05-18 08:10 | PDOC PROGRESS REPORT ---
Subjective Progress Note for:: 05/18/16 Subjective:: Patient did well over night, no further tachycardia noted. Physical Exam Vital Signs: Temp Pulse Resp BP Pulse Ox 98.6 F 88 18 118/64 99 05/18/16 05:18 05/18/16 05:18 05/18/16 05:18 05/18/16 05:18 05/18/16 05:18 Intake & Output 05/17/16 05/18/16 05/19/16 06:59 06:59 06:59 Intake Total 1142 3049 Balance 1142 3049 Weight 94.7 kg 94.8 kg Results Laboratory Results: 05/17/16 03:41 05/18/16 06:41 05/18/16 06:41 Sodium 139.1 Potassium 3.8 Chloride 104 Carbon Dioxide 27 Anion Gap 8 BUN 4 L Creatinine 0.67 Est GFR ( Amer) > 60 Est GFR (Non-Af Amer) > 60 Glucose 82 Calcium 9.1 Magnesium 1.7 05/16/16 05/16/16 05/17/16 20:35 21:50 03:41 Troponin I Cancelled 0.052 0.045 05/17/16 10:00 Troponin I 0.051 Impressions: Chest/Abdomen CTA 05/16/16 13:44 IMPRESSION: No PE. No significant change. Assessment & Plan - Diagnosis (1) Atrial fibrillation and flutter Is this a current diagnosis for this admission?: YesPlan: Further management per cardiology and hospitalist team, as noted previously agree with anticoagulation if needed. (2) Adenocarcinoma of left lung Is this a current diagnosis for this admission?: YesPlan: Further treatment planned as an outpatient, he has follow-up set up with us. - Time Time Spent with patient: 15-24 minutes Critical Time spent with patient: 15-24 minutes Anticipated discharge: Home
[2016-05-18] MEDS: DRONEDARONE HYDROCHLORIDE 400 MG TABLET PO SCH (09:48)
[2016-05-18] MEDS: PANTOPRAZOLE SODIUM 40 MG VIAL IV SCH (09:48)
[2016-05-18] MEDS: NYSTATIN/DEXAMETH/DIPHEN SUSP 120 ML PO SCH (09:49)
[2016-05-18] MEDS: APIXABAN 5 MG TABLET PO SCH (09:50)
[2016-05-18] MEDS: DOCUSATE SODIUM 100 MG CAPSULE PO SCH (09:53)
[2016-05-18 10:57] VITALS: BP 134/71
--- NOTE | 2016-05-18 17:04 | PDOC DISCHARGE SUMMARY ---
General - Admit/Disc Date/PCP Admission Date/Primary Care Provider: 05/16/16 16:22 KELLY HENDRIX MD Discharge Date: 05/18/16 - Discharge Diagnosis (1) Atrial fibrillation Is this a current diagnosis for this admission?: YesSummary: appreciate cardiology consult and recommendations for multaq and anticoagulation. He converted overnight with the use of the multi back into normal sinus rhythm and is remain so ever since. Follow-up EKG does not show any QT prolongation. He was provided prescriptions for the necessary medications and instructed to follow-up with Dr. Adams in 2 weeks. Case discussed with cardiology prior to discharge. Oncology cleared for the use of anticoagulation. (2) Adenocarcinoma of left lung Is this a current diagnosis for this admission?: YesSummary: Follow-up with oncology as instructed, due for external beam radiation today. (3) Alcohol dependence Is this a current diagnosis for this admission?: YesSummary: Counseled regarding gradual cessation or at minimum drastically reducing the daily dose of alcohol. (4) Tobacco dependence Is this a current diagnosis for this admission?: YesSummary: Counseled regarding tobacco cessation. Refused prescriptions for nicotine replacement. (5) Acute esophagitis Is this a current diagnosis for this admission?: YesSummary: Continue Magic mouthwash as prescribed by the oncologist. Likely radiation- induced. - Additional Information Resuscitation Status: Full Code Discharge Diet: Cardiac Discharge Activity: Activity As Tolerated, Balance Activity w/Rest Home Medications: Alfuzosin HCl [Uroxatral] 10 mg PO MEALS 05/16/16 Nystatin/Dexameth/Diphen [Magic Mouthwash] 5 ml PO QID 05/16/16 Apixaban [Eliquis 5 mg Tablet] 5 mg PO BID #60 tablet 05/18/16 Dronedarone Hydrochloride [Multaq 400 mg Tablet] 400 mg PO Q12 #60 tablet Metoprolol Tartrate [Lopressor 25 mg Tablet] 25 mg PO Q12A #60 tablet 05/18/16 Thiamine HCl [Thiamine 100 mg Tablet] 100 mg PO QPM tablet 05/18/16 History of Present Illness Patient complains of: Rapid heart rate and dizziness History of Present Illness: DOC LOMELI is a 60 year old male presents to the ED from the chemotherapy infusion suite when he suffered sudden onset of tachycardia. 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 During his infusion of chemotherapy this morning he started having a coughing fit followed by a sudden urge to defecate and by the time he arrived back to his chair after emptying his bowels he was very dizzy and his heart rate was noted to be elevated to the 150s. He was placed on oxygen and a rapid response was called at which time he was transported to the emergency department. Hospital Course Hospital Course: He denies chest pain or palpitations. He denies fevers and chills, hemoptysis, purulent phlegm, melena, hematochezia, dysuria, nausea or vomiting. He states his appetite is been very poor since his radiation therapy began and he is been taking viscous lidocaine to help with esophageal pain and odynophagia. He freely admits very little oral intake over the last week or so. He is a former heavy drinker of at least a sixpack of beer daily but over the last week has cut back to more than 1 or 2 per day. He denies alcohol withdrawal or admission to the hospital for previous alcohol intoxication or withdrawal. He is a former heavy smoker with a [id number]-year smoking history. He has no prior cardiac history and has never required stress testing or cardiology evaluation previously. There is a family history of coronary disease and atrial fibrillation. His mother from palpitations of alcoholism. Evaluation in the emergency department initially showed a sinus tachycardia and he was given IV fluids taking perhaps he was just hypovolemic. However they walked him in anticipation of discharge and he slipped into atrial fibrillation with rapid ventricular rate that resolved once he was placed back in bed at rest. Due to the paroxysmal nature of the tachycardia arrhythmia we were asked to admit for further evaluation and management. Patient was admitted to the hospital and most immediately slipped back into atrial fibrillation with a rapid ventricular response; he was given a bolus of Cardizem and converted again to normal sinus rhythm where he is remain through the night. Oncology and cardiology have consulted and are recommending rhythm control with multaq and initiating anticoagulation. He spontaneously converted back to normal sinus rhythm overnight and has remained that way ever since. He has been asymptomatic since his events during chemotherapy today. Case was discussed with cardiology and oncology and all parties feel he is stable for discharge home at this time. He is to continue on the medications as prescribed. He is to follow up with cardiology in 2 weeks. He is to follow up with oncology as instructed. He is to continue his radiation and chemotherapy as instructed. He was counseled regarding signs and symptoms of blood loss related to the anticoagulant and states clear understanding and willingness to comply. He was counseled regarding signs and symptoms of recurrent atrial fibrillation and reports clear understanding and willingness to return to the emergency department or seek medical attention immediately. All questions were asked and answered to his satisfaction. He expresses no concerns about discharge home at this time. Physical Exam Vital Signs: Temp Pulse Resp BP Pulse Ox 97.3 F 80 16 134/71 H 100 05/18/16 10:54 05/18/16 10:54 05/18/16 10:54 05/18/16 10:54 05/18/16 10:54 Intake & Output 05/17/16 05/18/16 05/19/16 06:59 06:59 06:59 Intake Total 1142 3049 Balance 1142 3049 Weight 94.7 kg 94.8 kg PHYSICAL EXAM GENERAL: NAD, very pale; well developed, well nourished; no obese; alert and oriented to person, place, time, situation HEENT: normocephalic, atraumatic; EOMI, PERRLA, no conjunctival injection, no scleral icterus; oral mucosa dry, neck supple, no LAD, normal ROM RESPIRATORY: no accessory muscle use, no increased WOB, good air entry bilaterally; no wheezes, rales, rhonchi or bibasilar inspiratory crackles CARDIO: no JVD; no systolic murmur; sinus rhythm on the monitor VASCULAR: no carotid bruit; no abdominal bruit; no pallor; 2+ radial, DP pulse ; normal capillary refill GI: soft; nondistended; normal bowel sounds; no rebound, rigidity, guarding; nontender NEURO: normal patella reflexes; normal sensation; normal motor function;no dysarthria; no nystagmus; tongue protrudes midline; MSK: 5/5 strength; normal ROM hips; ambulatory without assistance; no tenderness EXTREMITIES: no calf tender; no palpable cords in calf; no clubbing, cyanosis ; 1+ pedal edema PSYCH: normal affect, normal mood SKIN: warm; moist; no petechiae; no telengectasias; no jaundice; no rash Results Laboratory Results: 05/17/16 03:41 05/18/16 06:41 05/18/16 06:41 Sodium 139.1 Potassium 3.8 Chloride 104 Carbon Dioxide 27 Anion Gap 8 BUN 4 L Creatinine 0.67 Est GFR ( Amer) > 60 Est GFR (Non-Af Amer) > 60 Glucose 82 Calcium 9.1 Magnesium 1.7 05/16/16 05/16/16 05/17/16 20:35 21:50 03:41 Troponin I Cancelled 0.052 0.045 05/17/16 10:00 Troponin I 0.051 Impressions: Chest/Abdomen CTA 05/16/16 13:44 IMPRESSION: No PE. No significant change. Qualifiers PATEINT BEING DISCHARGED WITH ANY OF THE FOLLOWING DIAGNOSIS?: No VTE patient discharged on overlapping Therapy?: No Reason(s) for not prescribing Overlap Therapy:: Not indicated Plan Discharge Plan: Discharge home as described above. Time Spent: Greater than 30 Minutes
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
== END 2016-05-18 11:47 | disposition home or self-care (01) | DRG 309 ==
LOC: ER 13:27 → EH 16:05 → OBSVTOIN 16:22 → 3S 18:50
DX: I48.0 Paroxysmal atrial fibrillation (principal); C34.92 Malignant neoplasm of unspecified part of left bronchus or lung; I45.81 Long QT syndrome; K20.9 Esophagitis, unspecified; F10.20 Alcohol dependence, uncomplicated; F17.200 Nicotine dependence, unspecified, uncomplicated; K20.8 Other esophagitis; Y84.2 Radiological procedure and radiotherapy as the cause of abnormal reaction of the patient, or of later complication, without mention of misadventure at the time of the procedure; Y78.1 Therapeutic (nonsurgical) and rehabilitative radiological devices associated with adverse incidents; I10 Essential (primary) hypertension; M17.0 Bilateral primary osteoarthritis of knee; M19.072 Primary osteoarthritis, left ankle and foot; M19.071 Primary osteoarthritis, right ankle and foot; Z79.899 Other long term (current) drug therapy
CPT/HCPCS: 36415; 71275; 80048; 80053; 80061; 82550; 82553; 82803; 83036; 83605; 83735; 84100; 84443; 84484; 85025; 93005; 93010; 93306; 96365; 96375; 99291; J2405; J3475; J3490; J7120; S0164

== ENCOUNTER 2016-06-19 11:55 | Emergency (ER) | payer MEDICAID, OTHER ==
--- NOTE | 2016-06-19 12:57 | ER Document Report ---
ED Medical Screen (RME) - General Chief Complaint: Chest Pain Stated Complaint: CHEST PAIN Mode of Arrival: Ambulatory Information source: Patient Notes: 60-year-old male history of lung CVA recent A. fib diagnosis presents with complaints of shortness of breath since he has been receiving radiation. Patient has been receiving radiation for about 2 months, last received chemotherapy on Saturday Patient admits to nausea chest pain shortness of breath I have greeted and performed a rapid initial assessment of this patient. A comprehensive ED assessment and evaluation of the patient, analysis of test results and completion of the medical decision making process will be conducted by additional ED providers. PHYSICAL EXAMINATION: GENERAL: Chronically ill-appearing male no acute distress HEAD: Atraumatic, normocephalic. EYES: Pupils equal round and reactive to light, extraocular movements intact, sclera anicteric, conjunctiva are normal. ENT: Nares patent, oropharynx clear without exudates. Moist mucous membranes. NECK: Normal range of motion, supple without lymphadenopathy LUNGS: Breath sounds clear to auscultation bilaterally and equal. No wheezes rales or rhonchi. HEART: Regular rate and rhythm without murmurs ABDOMEN: Soft, nontender, nondistended abdomen. No guarding, no rebound. No masses appreciated. Musculoskeletal: Normal range of motion, no pitting or edema. No cyanosis. NEUROLOGICAL: Cranial nerves grossly intact. Normal speech, normal gait. Normal sensory, motor exams PSYCH: Normal mood, normal affect. SKIN: Warm, Dry, normal turgor, no rashes or lesions noted. TRAVEL OUTSIDE OF THE [place] IN LAST 30 DAYS: No - Related Data Allergies/Adverse Reactions: No Known Drug Allergies Allergy (Verified 06/19/16 12:08) Past Medical History - Past Medical History Cardiac Medical History: Reports: Hx Hypertension Denies: Hx Coronary Artery Disease, Hx Heart Attack Pulmonary Medical History: Denies: Hx Asthma, Hx Bronchitis, Hx COPD, Hx Pneumonia, Hx Tuberculosis Neurological Medical History: Denies: Hx Cerebrovascular Accident, Hx Seizures Renal/ Medical History: Denies: Hx Peritoneal Dialysis Musculoskeltal Medical History: Reports Hx Arthritis - Knee's, feet Past Surgical History: Reports: Hx Appendectomy, Other - CT-guided lung biopsy - Immunizations Hx Diphtheria, Pertussis, Tetanus Vaccination: Yes Physical Exam - Vital signs Vitals: Temp Pulse Resp BP Pulse Ox 97.9 F 106 H 20 103/62 100 06/19/16 12:10 06/19/16 12:10 06/19/16 12:10 06/19/16 12:10 06/19/16 12:10 Course - Vital Signs Vital signs: Temp Pulse Resp BP Pulse Ox 97.9 F 106 H 20 103/62 100 06/19/16 12:10 06/19/16 12:10 06/19/16 12:10 06/19/16 12:10 06/19/16 12:10
[2016-06-19] MEDS ORDERED: ONDANSETRON HCL INJ/PF 4 MG/2 ML SDV IV ONE (13:00)
[2016-06-19] MEDS ORDERED: MORPHINE SULFATE 10 MG/ML INJ IV ONE (13:00)
[2016-06-19] MEDS ORDERED: NORMAL SALINE 1000 ML 1,000 ML IV ONE ×2 (13:00→16:27)
--- NOTE | 2016-06-19 13:13 | ER Document Report ---
ED General - General Mode of Arrival: Ambulatory TRAVEL OUTSIDE OF THE [place] IN LAST 30 DAYS: No - HPI Patient complains to provider of: Chest Pain Onset: Other - 06/16/2016 Onset/Duration: Sudden, Persistent Associated symptoms: Diarrhea, Nausea, Vomiting, Shortness of breath, Other - Bloating Recently seen / treated by doctor: Yes - Recent Chemotherapy Treatment <MODESTO RENDON - Last Filed: 06/19/16 13:13> <CATHERINE PEREZ - Last Filed: 06/19/16 16:27> - General Chief Complaint: Chest Pain Stated Complaint: CHEST PAIN Notes: Patient is a 60-year-old male presenting to the emergency department concerned of chest pain onset 06/16/2016. Patient has lung cancer, and his last chemotherapy treatment was either June 13 or June 06, but he cannot remember definitively. Patient also complains of "feeling terrible" including nausea, vomiting, a small mother diarrhea, shortness of breath, and bloating. Patient also reports having completed his radiation treatment proximal month ago. Patient quit smoking 2 years ago, but still continues to drink alcohol. Patient reports having 1 drink last night. Patient also has a history of atrial fibrillation. (MODESTO RENDON) - Related Data Allergies/Adverse Reactions: No Known Drug Allergies Allergy (Verified 06/19/16 12:08) Past Medical History - General Information source: Patient - Social History Smoking Status: Former Smoker - Quit 2014 Cigarette use (# per day): No Frequency of alcohol use: Heavy Family History: Reviewed & Not Pertinent Patient has suicidal ideation: No Patient has homicidal ideation: No - Past Medical History Cardiac Medical History: Reports: Hx Atrial Fibrillation, Hx Hypertension Malignancy Medical History: Reports Hx Lung Cancer Musculoskeltal Medical History: Reports Hx Arthritis - Knee's, feet Past Surgical History: Reports: Hx Appendectomy, Other - CT-guided lung biopsy - Immunizations Hx Diphtheria, Pertussis, Tetanus Vaccination: Yes <MODESTO RENDON - Last Filed: 06/19/16 13:13> Review of Systems - Review of Systems Constitutional: No symptoms reported EENT: No symptoms reported Cardiovascular: See HPI, Chest pain Respiratory: See HPI, Short of breath Gastrointestinal: See HPI, Diarrhea, Nausea, Vomiting, Other - Feels bloated Genitourinary: No symptoms reported Male Genitourinary: No symptoms reported Musculoskeletal: No symptoms reported Skin: No symptoms reported Hematologic/Lymphatic: No symptoms reported Neurological/Psychological: No symptoms reported -: Yes All other systems reviewed and negative <MODESTO RENDON - Last Filed: 06/19/16 13:13> Physical Exam - General General appearance: Alert - HEENT Head: Normocephalic, Atraumatic Eyes: Normal Pupils: PERRL - Respiratory Respiratory status: No respiratory distress Chest status: Nontender Breath sounds: Normal Chest palpation: Normal - Cardiovascular Rhythm: Regular Heart sounds: Normal auscultation Murmur: No - Abdominal Inspection: Normal - Soft, active bowel sounds - Back Back: Normal, Nontender - Extremities General upper extremity: Normal inspection, Nontender General lower extremity: Normal inspection, Nontender - Neurological Neuro grossly intact: Yes Cognition: Normal Orientation: AAOx4 [place] Coma Scale Eye Opening: Spontaneous [place] Coma Scale Verbal: Oriented [place] Coma Scale Motor: Obeys Commands [place] Coma Scale Total: 15 Speech: Normal - Psychological Associated symptoms: Normal affect, Normal mood - Skin Skin Temperature: Warm Skin Moisture: Dry Skin Color: Pale <MODESTO RENDON - Last Filed: 06/19/16 13:13> Course <MODESTO RENDON - Last Filed: 06/19/16 13:13> - Laboratory Result Diagrams: 06/19/16 14:20 06/19/16 14:20 - Diagnostic Test Radiology reviewed: Image reviewed, Reports reviewed - CTA shows the known lung cancer and left upper lung, no pulmonary embolus or other abnormality. - EKG Interpretation by [facility] EKG shows normal: Sinus rhythm, [place], Intervals, QRS Complexes, ST-T Waves Rate: Normal - 93 Rhythm: NSR P Waves: LAE <CATHERINE PEREZ - Last Filed: 06/19/16 16:27> - Re-evaluation Re-evalutation: 06/19/16 16:15 I discussed the patient with Dr. Garcia. He reports the patient got his chemotherapy on 06/13/2016, and then got a Neulasta injection. Symptoms are not unexpected and that his white count should respond soon. He requests the patient receive IV fluids and antiemetics and be discharged home to follow-up in the office in 2 days on . (CATHERINE PEREZ) - Vital Signs Vital signs: Temp Pulse Resp BP Pulse Ox 97.9 F 97 16 120/76 98 06/19/16 12:10 06/19/16 16:07 06/19/16 16:07 06/19/16 16:07 06/19/16 16:07 - Laboratory Laboratory results interpreted by me: 06/19/16 06/19/16 14:20 14:20 WBC 0.5 L* RBC 2.84 L Hgb 10.2 L Hct 27.9 L MCV 98 H MCH 35.9 H MCHC 36.5 H RDW 20.1 H Plt Count 147 L Seg Neutrophils % 5.5 L Lymphocytes % 69.5 H Monocytes % 19.0 H Absolute Neutrophils 0.0 L Absolute Lymphocytes 0.3 L Sodium 131.0 L Chloride 93 L Total Bilirubin 1.5 H Creatine Kinase 20 L Discharge <MODESTO RENDON - Last Filed: 06/19/16 13:13> <CATHERINE PEREZ - Last Filed: 06/19/16 16:27> - Discharge Clinical Impression: Nausea and vomiting Qualifiers: Vomiting type: unspecified Vomiting Intractability: non-intractable Qualified Code(s): R11.2 - Nausea with vomiting, unspecified Neutropenia Qualifiers: Neutropenia type: secondary to cancer chemotherapy Qualified Code(s): D70.1 - Agranulocytosis secondary to cancer chemotherapy Lung cancer Qualifiers: Laterality: left Lung location: upper lobe of lung Qualified Code(s): C34.12 - Malignant neoplasm of upper lobe, left bronchus or lung Condition: Stable Additional Instructions: Your symptoms are most likely due to the Neulasta shot he received after you left chemotherapy dose. Your white blood cell count is quite low but should be responding to the Neulasta shot and rebounding back to normal saline. For now you should stay at home and avoid any sick people. Drink plenty of fluids. Take the nausea medicine as needed. Follow-up with Dr. Garcia on in the office. RETURN TO THE EMERGENCY ROOM IF ANY NEW OR WORSENING SYMPTOMS. Prescriptions: Metoclopramide HCl [Reglan 10 mg Tablet] 1 tab PO ASDIR PRN #25 tablet PRN Reason: Referrals: GINA SAMANIEGO MD [Primary Care Provider] - Follow up as needed KELLY GARCIA MD [ACTIVE STAFF] - 06/21/16 Scribe Attestation: 06/19/16 16:27 I personally performed the services described in the documentation, reviewed and edited the documentation which was dictated to the scribe in my presence, and it accurately records my words and actions. (CATHERINE PEREZ) Scribe Documentation - Scribe Written by Aniceto:: Modesto Rendon 06/19/2016 1313 acting as scribe for :: Carmen <MODESTO RENDON - Last Filed: 06/19/16 13:13>
[2016-06-19 14:43] LABS: ABSOLUTE LYMPHOCYTES (AUTO) 0.3 10^3/uL (0.5-4.7); ABSOLUTE MONOCYTES (AUTO) 0.1 10^3/uL (0.1-1.4); BASOPHILS % (AUTO) 0.5 % (0-2); EOSINOPHILS % (AUTO) 5.5 % (0-6); HEMATOCRIT 27.9 % (37.9-51.0); HEMOGLOBIN 10.2 g/dL (13.5-17.0); HGB HCT DIFFERENCE 2.7; LYMPHOCYTES % (AUTO) 69.5 % (13-45); MEAN CORPUSCULAR HEMOGLOBIN 35.9 pg (27.0-33.4); MEAN CORPUSCULAR HGB CONC 36.5 g/dL (32.0-36.0); MEAN CORPUSCULAR VOLUME 98 fl (80-97); RED BLOOD COUNT 2.84 10^6/uL (4.35-5.55); RED CELL DISTRIBUTION WIDTH 20.1 % (11.5-14.0); SEGMENTED NEUTROPHILS % (AUTO) 5.5 % (42-78)
[2016-06-19 14:51] LABS: WHITE BLOOD COUNT 0.5 10^3/uL (4.0-10.5)
[2016-06-19 15:00] LABS: ALANINE AMINOTRANSFERASE 36 U/L (21-72); ALBUMIN 4.1 g/dL (3.5-5.0); ALKALINE PHOSPHATASE 95 U/L (38-126); ANION GAP 14 (5-19); ASPARTATE AMINO TRANSFERASE 35 U/L (17-59); BILIRUBIN,DIRECT 0.3 mg/dL (0.0-0.4); BILIRUBIN,TOTAL 1.5 mg/dL (0.2-1.3); BLOOD UREA NITROGEN 9 mg/dL (7-20); CALCIUM 9.6 mg/dL (8.4-10.2); CARBON DIOXIDE 24 mmol/L (22-30); CHLORIDE 93 mmol/L (98-107); CREATINE KINASE 20 U/L (55-170); CREATININE RESULT 0.68 mg/dL (0.52-1.25); GLUCOSE 103 mg/dL (75-110); POTASSIUM 4.5 mmol/L (3.6-5.0); TOTAL PROTEIN 7.2 g/dL (6.3-8.2)
[2016-06-19 15:11] LABS: ANISOCYTOSIS 2+; TROPONIN I 0.017 ng/mL
[2016-06-19 15:17] LABS: CREATINE KINASE MB < 0.22 ng/mL (<4.55)
[2016-06-19] MEDS ORDERED: METOCLOPRAMIDE HCL INJ/PF 10 MG/2 ML SDV IV ONE (15:58)
[2016-06-19 16:02] LABS: APPEARANCE,URINE CLEAR; BILIRUBIN,URINE NEGATIVE (NEGATIVE); GLUCOSE, URINE NEGATIVE (NEGATIVE); KETONES,URINE NEGATIVE (NEGATIVE); LEUKOCYTE ESTERASE,URINE NEGATIVE (NEGATIVE); NITRITE,URINE NEGATIVE (NEGATIVE); PROTEIN,URINE NEGATIVE (NEGATIVE); URINE SPECIFIC GRAVITY 1.021; UROBILINOGEN,URINE NEGATIVE mg/dL (<2.0)
[2016-06-19 18:46] VITALS: BP 126/67
--- NOTE | 2016-06-19 22:17 | EKG REPORT ---
SEVERITY:- BORDERLINE ECG - SINUS RHYTHM PROBABLE LEFT ATRIAL ABNORMALITY : Confirmed by: Mayur Adams 19-Jun-2016 22:17:16
[2016-06-20 14:09] LABS: PATH REVIEW PATHOLOGIST REVIEWED
== END 2016-06-19 19:22 | disposition home or self-care (01) ==
LOC: ER 11:55
DX: C34.12 Malignant neoplasm of upper lobe, left bronchus or lung (principal); D70.1 Agranulocytosis secondary to cancer chemotherapy; R11.2 Nausea with vomiting, unspecified; R19.7 Diarrhea, unspecified; R07.9 Chest pain, unspecified; R06.02 Shortness of breath; R14.0 Abdominal distension (gaseous); I10 Essential (primary) hypertension; Z92.3 Personal history of irradiation; Z87.891 Personal history of nicotine dependence
CPT/HCPCS: 93005; 99285; 96361; 96374; 96375; 86900; 86901; 36415; 82553; 86850; 82550; 85025; 80053; 81001; 84484; 83880; 71275; 93010; J2765; J2270; J2405; J7030

== ENCOUNTER → 2016-08-03 | Outpatient (CLI) | payer MEDICAID ==
--- NOTE | 2016-08-03 11:54 | RADIOLOGY REPORT (SQ) ---
EXAM DESCRIPTION: CT CHEST WITH COMPLETED DATE/TIME: 08/03/2016 11:21 am REASON FOR STUDY: LUNG CA C34.12 MALIGNANT NEOPLASM OF UPPER LOBE, LEFT BRONCHUS OR TISHA COMPARISON: CTA of the chest dated 06/19/2016 TECHNIQUE: CT scan of the chest performed using helical scanning technique with dynamic intravenous contrast injection. Images reviewed with lung, soft tissue and bone windows. Reconstructed coronal and sagittal MPR images reviewed. All images stored on PACS. All CT scanners at this facility use dose modulation, iterative reconstruction, and/or weight based d osing when appropriate to reduce radiation dose to as low as reasonably achievable (ALARA). [facility]: Dose Right [facility]: CareDose [facility]: Dose Right [facility]: Teradose 4D [facility]: [employer] CONTRAST TYPE AND DOSE: 98mL Isovue 370- low osmolar. RENAL FUNCTION: Creatinine 0.8 RADIATION DOSE: 6.81 mGy. LIMITATIONS: None. FINDINGS: LUNGS AND PLEURA: The previously described cavitary mass in the left upper lobe is again i dentified and measures 3.1 cm in diameter on the current study compared to 3.8 cm on the previous eileen dy. The previously described contiguous nodule measures 1.3 cm on the current study compared to 1.8 cm on the previous study. There are some minimal adjacent airspace densities which could be related to atelectatic changes. This could also be related to post radiation changes. There is some minimal apical pleural-parenchymal scarring in the right lung apex which appears stable. Remaining lung fie lds are clear. No pleural effusions are identified. No pneumothorax is seen. HILAR AND MEDIASTINAL STRUCTURES: No identified masses or abnormal nodes. HEART AND VASCULAR STRUCTURES: No aneurysm or dissection. No central pulmonary emboli. No pericardi al effusion. HARDWARE: None in the chest. UPPER ABDOMEN: See results under abdominal CT scan THYROID AND OTHER SOFT TISSUES: No masses. No adenopathy. BONES: No significant finding. OTHER: No other significant finding. IMPRESSION: The previously described cavitary mass in the left upper lobe is again identified and me asures slightly smaller on the current study as noted above. The previously described contiguous nod ule also measures slightly smaller on the current study. There is some minimal adjacent airspace den sities which could be related to atelectatic changes. This could also be related to postradiation ch anges. No other significant intrathoracic abnormalities were identified. Other findings as noted ab ove TECHNICAL DOCUMENTATION: JOB ID: [id number] Quality ID # [id number]: Final reports with documentation of one or more dose reduction techniques (e.g., Au tomated exposure control, adjustment of the mA and/or kV according to patient size, use of iterative reconstruction technique) 2010 [employer]- All Rights Reserved
--- NOTE | 2016-08-03 12:05 | RADIOLOGY REPORT (SQ) ---
EXAM DESCRIPTION: CT ABDOMEN IV CONTRAST ONLY COMPLETED DATE/TIME: 08/03/2016 11:22 am REASON FOR STUDY: LUNG CA C34.12 MALIGNANT NEOPLASM OF UPPER LOBE, LEFT BRONCHUS OR TISHA COMPARISON: None. TECHNIQUE: CT scan of the abdomen performed with intravenous and without oral contrast using helical scanning technique with dynamic intravenous contrast injection. Images reviewed with lung, soft tiss ue, and bone windows. Reconstructed coronal and sagittal MPR images reviewed. Delayed images for eval uation of the urinary system also acquired and evaluated. All images stored on PACS. All CT scanners at this facility use dose modulation, iterative reconstruc tion, and/or weight based dosing when appropriate to reduce radiation dose to as low as reasonably ac hievable (ALARA). [facility]: Dose Right [facility]: CareDose [facility]: Dose Right [facility]: Teradose 4D [facility]: [employer] CONTRAST TYPE AND DOSE: 98 Isovue 370- low osmolar. RENAL FUNCTION: Creatinine 0.8 RADIATION DOSE: 32.68 mGy. LIMITATIONS: None. FINDINGS: LOWER CHEST: No significant findings. No nodules or infiltrates. LIVER: Normal size. No masses or dilated ducts. SPLEEN: Normal size. No focal lesions. PANCREAS: No masses. No significant calcifications. No adjacent inflammation or peripancreatic fluid collections. Pancreatic duct not dilated. GALLBLADDER: No identified stones by CT criteria. No inflammatory changes to suggest cholecystitis. ADRENAL GLANDS: No significant masses or asymmetry. RIGHT KIDNEY AND URETER: No solid masses. No significant calcifications. No hydronephrosis or hyd roureter. LEFT KIDNEY AND URETER: No solid masses. No significant calcifications. No hydronephrosis or hydr oureter. AORTA AND VESSELS: No aneurysm. Vascular calcifications are identified in the abdominal aorta. No d issection. Renal arteries, SMA, celiac without stenosis. RETROPERITONEUM: No retroperitoneal adenopathy, hemorrhage or masses. BOWEL AND PERITONEAL CAVITY: No masses or inflammatory changes. No free fluid or peritoneal masses. APPENDIX: Not identified ABDOMINAL WALL: No masses. No hernias. BONES: No significant or acute findings. OTHER: No other significant finding. IMPRESSION: No evidence for intra-abdominal metastatic disease no other significant intra-abdominal abnormalities were identified. Findings as noted above. TECHNICAL DOCUMENTATION: JOB ID: [id number] Quality ID # [id number]: Final reports with documentation of one or more dose reduction techniques (e.g., Au tomated exposure control, adjustment of the mA and/or kV according to patient size, use of iterative reconstruction technique) 2010 [employer]- All Rights Reserved
== END ==
LOC: RAD 10:25
PROVIDERS: ATTEND Internal Medicine
DX: C34.12 Malignant neoplasm of upper lobe, left bronchus or lung (principal)
CPT/HCPCS: 71260; 74160

== ENCOUNTER → 2016-08-31 | Outpatient (CLI) | payer MEDICAID, OTHER ==
--- NOTE | 2016-09-03 09:50 | RADIOLOGY REPORT (SQ) ---
EXAM DESCRIPTION: PET CT SKULL/THIGH COMPLETED DATE/TIME: 08/31/2016 2:13 pm REASON FOR STUDY: LUNG CA (C34.12) C34.12 MALIGNANT NEOPLASM OF UPPER LOBE, LEFT BRONCHUS OR TISHA COMPARISON: CT chest 08/03/2016, 06/19/2016, 05/16/2016, 05/07/2016, 02/15/2016 CT abdomen pelvis 08/03/2016, 10/29/2014 PET-CT 03/16/2016 RADIONUCLIDE AND DOSE: 10.8 mCi F18 FDG The route of agent administration: Intravenous FASTING BLOOD SUGAR: 90 mg/dl CONTRAST TYPE AND DOSE: No CT contrast given. TECHNIQUE: Blood glucose level was verified. Above dose of FDG was injected intravenously. 2-D seg mented attenuation correction images were obtained from the base of the skull to the midthighs. Nonc ontrast CT images were obtained for attenuation correction and fusion with emission images. CT image s were performed without oral or intravenous contrast and are not sensitive for parenchymal lesions. A series of overlapping emission PET images were obtained. Images reviewed and manipulated at [facility] work station by the radiologist. Images stored on PACS. LIMITATIONS: None. FINDINGS: HEAD AND NECK: No areas of abnormal metabolic activity in the soft tissues of the head and neck. CHEST: No areas of abnormal metabolic activity in the chest. There is a right upper lobe partially c avitary mass measuring 4 x 3 cm in size, non metabolic. This was 4.6 x 3.[address] exam 08/03/2016, a nd was 7 x 5.6 cm size on 03/16/2016. No metabolically active or enlarged mediastinal lymph nodes. There is a punctate focus of increased metabolic activity in the mid 3rd of the esophagus, at the lev el of the aortic arch with SUV 3.7. This could represent focal residual esophagitis within the treat ment field of radiation therapy. ABDOMEN AND PELVIS: No areas of abnormal metabolic activity in the abdomen or pelvis. Expected physi ologic activity is present in the genitourinary system and bowel. PROXIMAL LOWER EXTREMITIES: No areas of abnormal metabolic activity in the soft tissues of the lower extremities. BONES: No abnormal metabolic activity in the visualized skeleton. ADDITIONAL CT FINDINGS: Colonic diverticulosis without CT signs of acute diverticulitis. Calcified c arotid bifurcations, renal artery origins and coronary arteries. OTHER: Blood pool activity 1.7 SUV, liver activity 2.3 SUV. IMPRESSION: Left upper lobe mass 4 x 3 cm in size, currently non metabolic No metabolically active or enlarged mediastinal lymph nodes No PET-CT evidence of widespread metastatic disease TECHNICAL DOCUMENTATION: JOB ID: [id number] [employer]- All Rights Reserved
== END ==
LOC: RAD 11:10
PROVIDERS: ATTEND Specialist
DX: C34.12 Malignant neoplasm of upper lobe, left bronchus or lung (principal)
CPT/HCPCS: 78815; A9552

== ENCOUNTER → 2016-09-05 | Outpatient (CLI) | payer MEDICAID, OTHER ==
--- NOTE | 2016-09-05 12:33 | RADIOLOGY REPORT (SQ) ---
EXAM DESCRIPTION: MRI HEAD COMBO COMPLETED DATE/TIME: 09/05/2016 12:10 pm REASON FOR STUDY: LUNG CANCER C34.12 MALIGNANT NEOPLASM OF UPPER LOBE, LEFT BRONCHUS OR TISHA COMPARISON: PET-CT 08/31/2016 MRI brain 03/12/2016 TECHNIQUE: Multiplanar imaging includes noncontrasted T1, T2, FLAIR, diffusion with ADC map and post gadolinium contrast T1 sequences. Images stored on PACS. CONTRAST TYPE AND DOSE: 19 mL Mult[employer]ance. RENAL FUNCTION: GFR > 60. LIMITATIONS: None. FINDINGS: ANATOMY: No anomalies. Normal vascular flow voids. Pituitary fossa normal. CSF SPACES: Normal in size and contour. No hemorrhage. CEREBRUM: Sulci and gyri normal in size and contour. Normal white matter signal on FLAIR imaging. No evidence of hemorrhage, mass, or extraaxial fluid collection. No abnormal enhancement post contrast. POSTERIOR FOSSA: No signal alteration. No hemorrhage. No edema, masses, or mass effect. Internal radha tory canals, cerebellopontine angles, mastoids normal. No enhancing lesions. No abnormal enhancement post contrast. DIFFUSION IMAGING: Negative for acute or subacute infarction. ORBITS: No masses. Globes normal. PARANASAL SINUSES: No fluid levels. Mucosa normal. OTHER: Thinning of the scalp fat layer high over the midline frontal region from skin cancer resectio n. No underlying bony abnormality or recurrent soft tissue mass. IMPRESSION: NORMAL MRI OF THE BRAIN WITHOUT AND WITH INTRAVENOUS GADOLINIUM CONTRAST. TECHNICAL DOCUMENTATION: JOB ID: [id number] [employer]- All Rights Reserved
== END ==
LOC: RAD 10:56
PROVIDERS: ATTEND Internal Medicine
DX: C34.12 Malignant neoplasm of upper lobe, left bronchus or lung (principal)
CPT/HCPCS: 70553; A9577

== ENCOUNTER 2016-10-01 09:48 | Emergency (ER) | payer MEDICAID, OTHER ==
--- NOTE | 2016-10-01 10:27 | ER Document Report ---
ED Medical Screen (RME) - General Chief Complaint: Shortness Of Breath Stated Complaint: LUNG PAIN Time Seen by Provider: 10/01/16 10:23 Mode of Arrival: Wheelchair Information source: Patient Notes: 60-year-old male history of lung cancer who has had chemo 2 months ago who is supposed to have lobe ectomy performed shortly presents with complaints of left lung pain when she he takes a deep breath and I have greeted and performed a rapid initial assessment of this patient. A comprehensive ED assessment and evaluation of the patient, analysis of test results and completion of the medical decision making process will be conducted by additional ED providers. PHYSICAL EXAMINATION: GENERAL: Well-appearing, well-nourished and in no acute distress. HEAD: Atraumatic, normocephalic. EYES: Pupils equal round extraocular movements intact, conjunctiva are normal. ENT: Nares patent NECK: Normal range of motion LUNGS: No respiratory distress Musculoskeletal: Normal range of motion NEUROLOGICAL: Normal speech, normal gait. PSYCH: Normal mood, normal affect. SKIN: Warm, Dry, normal turgor, no rashes or lesions noted. TRAVEL OUTSIDE OF THE [place] IN LAST 30 DAYS: No - Related Data Allergies/Adverse Reactions: omeprazole Allergy (Verified 10/01/16 10:21) Past Medical History - Past Medical History Cardiac Medical History: Reports: Hx Atrial Fibrillation, Hx Hypertension Denies: Hx Coronary Artery Disease, Hx Heart Attack Pulmonary Medical History: Denies: Hx Asthma, Hx Bronchitis, Hx COPD, Hx Pneumonia, Hx Tuberculosis Neurological Medical History: Denies: Hx Cerebrovascular Accident, Hx Seizures Renal/ Medical History: Denies: Hx Peritoneal Dialysis Malignancy Medical History: Reports Hx Lung Cancer Musculoskeltal Medical History: Reports Hx Arthritis - Knee's, feet Past Surgical History: Reports: Hx Appendectomy, Other - CT-guided lung biopsy - Immunizations Hx Diphtheria, Pertussis, Tetanus Vaccination: Yes Physical Exam - Vital signs Vitals: Temp Pulse Resp BP Pulse Ox 98.6 F 98 16 124/77 97 10/01/16 09:57 10/01/16 09:57 10/01/16 09:57 10/01/16 09:57 10/01/16 09:57 Course - Vital Signs Vital signs: Temp Pulse Resp BP Pulse Ox 98.6 F 98 16 124/77 97 10/01/16 09:57 10/01/16 09:57 10/01/16 09:57 10/01/16 09:57 10/01/16 09:57
[2016-10-01 11:07] LABS: ABSOLUTE LYMPHOCYTES (AUTO) 0.5 10^3/uL (0.5-4.7); ABSOLUTE MONOCYTES (AUTO) 0.6 10^3/uL (0.1-1.4); ABSOLUTE NEUT (AUTO) 2.5 10^3/uL (1.7-8.2); BASOPHILS % (AUTO) 0.4 % (0-2); EOSINOPHILS % (AUTO) 1.3 % (0-6); HEMATOCRIT 45.2 % (37.9-51.0); HEMOGLOBIN 15.4 g/dL (13.5-17.0); LYMPHOCYTES % (AUTO) 14.3 % (13-45); MEAN CORPUSCULAR HEMOGLOBIN 33.5 pg (27.0-33.4); MEAN CORPUSCULAR VOLUME 98 fl (80-97); MONOCYTES % (AUTO) 16.4 % (3-13); SEGMENTED NEUTROPHILS % (AUTO) 67.6 % (42-78); WHITE BLOOD COUNT 3.7 10^3/uL (4.0-10.5)
[2016-10-01] MEDS ORDERED: ASPIRIN 325 MG TABLET PO ONE (11:07)
--- NOTE | 2016-10-01 11:07 | ER Document Report ---
ED General - General Chief Complaint: Shortness Of Breath Stated Complaint: LUNG PAIN Time Seen by Provider: 10/01/16 10:23 Mode of Arrival: Wheelchair Information source: Patient Notes: 60-year-old male with past medical history including stage III lung cancer of the left upper lung followed by a local oncologist with his last chemo and radiation therapy treatment 3 months ago, who presents today stating some left- sided nonradiating chest "discomfort" starting Saturday. Patient states on Saturday he developed some bilateral swelling to his feet. No history of this previously. He went to the clinical rn who prescribed Lasix and performed an echo Saturday. Patient states around 3 hours after the echocardiogram is when he developed the chest discomfort. He states it completely resolved yesterday and denies any discomfort today. Patient states he did not come in over the weekend because he thought the ER would be too busy. Patient states he has had no shortness of breath above baseline. He states his swelling has resolved. He denies any nausea, vomiting, or fevers. He states no cough above baseline. TRAVEL OUTSIDE OF THE [place] IN LAST 30 DAYS: No - HPI Onset: Other - See above Onset/Duration: Gradual - See above Quality of pain: Other - See above Severity: Mild Pain Level: Denies Associated symptoms: Other - See above Exacerbated by: Denies Relieved by: Denies Similar symptoms previously: Yes Recently seen / treated by doctor: Yes - Related Data Allergies/Adverse Reactions: omeprazole Allergy (Verified 10/01/16 10:21) Home Medications: Current Home Medications Alfuzosin HCl [Alfuzosin HCl ER] 10 mg PO DAILY 10/01/16 [History] Bupropion HCl [Bupropion HCl Sr] 150 mg PO DAILY 10/01/16 [History] Buspirone HCl 15 mg PO DAILY 10/01/16 [History] Diazepam 2 mg PO PRN PRN 10/01/16 [History] Furosemide 20 mg PO ASDIR PRN 10/01/16 [History] Lidocaine 1 each TP PRN PRN 10/01/16 [History] Mirtazapine 15 mg PO DAILY 10/01/16 [History] Past Medical History - General Information source: Patient - Social History Smoking Status: Never Smoker Chew tobacco use (# tins/day): No Frequency of alcohol use: None Drug Abuse: None Family History: Reviewed & Not Pertinent - Past Medical History Cardiac Medical History: Reports: Hx Atrial Fibrillation, Hx Hypertension Denies: Hx Coronary Artery Disease, Hx Heart Attack Pulmonary Medical History: Denies: Hx Asthma, Hx Bronchitis, Hx COPD, Hx Pneumonia, Hx Tuberculosis Neurological Medical History: Denies: Hx Cerebrovascular Accident, Hx Seizures Renal/ Medical History: Denies: Hx Peritoneal Dialysis Malignancy Medical History: Reports Hx Lung Cancer Musculoskeltal Medical History: Reports Hx Arthritis - Knee's, feet Past Surgical History: Reports: Hx Appendectomy, Other - CT-guided lung biopsy - Immunizations Hx Diphtheria, Pertussis, Tetanus Vaccination: Yes Review of Systems - Review of Systems Constitutional: denies: Fever EENT: denies: Eye discharge, Nose discharge Cardiovascular: denies: Palpitations, Heart racing Respiratory: denies: Hemoptysis, Short of breath Gastrointestinal: denies: Vomiting Genitourinary: denies: Dysuria Musculoskeletal: denies: Leg swelling Skin: Other - no hives. denies: Rash Neurological/Psychological: Other - no slurred speech -: Yes All other systems reviewed and negative Physical Exam - Vital signs Vitals: Temp Pulse Resp BP Pulse Ox 98.6 F 98 16 124/77 97 10/01/16 09:57 10/01/16 09:57 10/01/16 09:57 10/01/16 09:57 10/01/16 09:57 Notes: Reviewed vital signs and nursing note as charted by RN. CONSTITUTIONAL: Alert and oriented and responds appropriately to questions. Well -appearing; well-nourished HEAD: Normocephalic; atraumatic CARD: Regular rate and rhythm; no murmurs, no clicks, no rubs, no gallops; symmetric distal pulses RESP: Normal chest excursion without splinting or tachypnea; breath sounds clear and equal bilaterally; no wheezing or rhonchi noted. No obvious rales present. ABD/GI: Normal bowel sounds; non-distended; soft, non-tender, no rebound, no guarding; no palpable organomegaly or masses BACK: The back appears normal and is non-tender to palpation, there is no CVA tenderness EXT: Normal ROM in all joints; non-tender to palpation; no cyanosis, no effusions, no edema SKIN: Normal color for age and race; warm; dry; good turgor; capillary refill < 2 seconds; no acute lesions noted NEURO: Moves all extremities equally; Motor and sensory function intact PSYCH: The patient's mood and manner are appropriate. Grooming and personal hygiene are appropriate. Course - Re-evaluation Re-evalutation: 10/01/16 11:07 Given the above history and physical examination I called the patient's oncologist and spoke directly to Dr. Fowler. I explained the full history and physical examination and he agrees with a cardiology workup including an EKG, BNP, and a CTA of the chest. Given that the patient had chest discomfort on Saturday and has not had chest discomfort for the last 36 hours, do not believe repeat troponin is necessary. I would like to rule out possible pulmonary embolism. I believe this is slightly low probability given the lack of shortness of breath. I do believe aortic dissection to be extremely unlikely. 10/01/16 11:30 EKG shows a heart rate of 90, normal sinus rhythm, normal axis, no obvious ST elevation or depression. 10/01/16 12:45 Labs as recorded. Unremarkable BNP and troponin. Patient is going to CT scan of the chest at this time. 10/01/16 13:42 Patient still denies any pain. Vital signs are stable. CT shows no change in the size of the lesion and no pulmonary emboli. Troponin is unremarkable. Normal BNP. Urged home with strict return precautions and follow-up with his primary care physician, clinical rn, oncologist, and scheduled surgery. 10/01/16 13:46 I called and spoke directly to Dr. Adams the patient's clinical rn who states he is able to see and reassess the patient tomorrow. Patient is very pleased with this plan. - Vital Signs Vital signs: Temp Pulse Resp BP Pulse Ox 98.6 F 98 19 137/83 H 98 10/01/16 09:57 10/01/16 09:57 10/01/16 13:01 10/01/16 13:00 10/01/16 13:01 - Laboratory Result Diagrams: 10/01/16 10:45 10/01/16 11:30 Laboratory results interpreted by me: 10/01/16 10/01/16 10:45 11:30 WBC 3.7 L MCV 98 H MCH 33.5 H Monocytes % 16.4 H Sodium 134.6 L Carbon Dioxide 21 L Direct Bilirubin 0.5 H Alkaline Phosphatase 146 H Creatine Kinase 28 L Discharge - Discharge Clinical Impression: Left sided chest pain Condition: Good Disposition: HOME, SELF-CARE Additional Instructions: Come back immediately with any return of pain, fevers, weakness or numbness, shortness of breath, leg swelling, or any other acute problems. Please follow- up with your clinical rn as we have discussed for further evaluation and treatment prior to your surgery.
[2016-10-01 12:08] LABS: ALANINE AMINOTRANSFERASE 35 U/L (21-72); ALKALINE PHOSPHATASE 146 U/L (38-126); ANION GAP 15 (5-19); ASPARTATE AMINO TRANSFERASE 28 U/L (17-59); BILIRUBIN,DIRECT 0.5 mg/dL (0.0-0.4); BILIRUBIN,TOTAL 0.5 mg/dL (0.2-1.3); BLOOD UREA NITROGEN 7 mg/dL (7-20); CALCIUM 8.9 mg/dL (8.4-10.2); CARBON DIOXIDE 21 mmol/L (22-30); CHLORIDE 99 mmol/L (98-107); CREATINE KINASE 28 U/L (55-170); CREATININE RESULT 0.63 mg/dL (0.52-1.25); GLUCOSE 81 mg/dL (75-110); POTASSIUM 4.4 mmol/L (3.6-5.0); SODIUM 134.6 mmol/L (137-145); TOTAL PROTEIN 7.5 g/dL (6.3-8.2)
[2016-10-01 12:17] LABS: CREATINE KINASE MB 0.43 ng/mL (<4.55)
[2016-10-01 12:26] LABS: TROPONIN I < 0.012 ng/mL
--- NOTE | 2016-10-01 13:10 | RADIOLOGY REPORT (SQ) ---
EXAM DESCRIPTION: CTA CHEST COMPLETED DATE/TIME: 10/01/2016 12:57 pm REASON FOR STUDY: lung ca, left sided pain COMPARISON: 08/03/2016 TECHNIQUE: CT scan of the chest performed using helical scanning technique with dynamic intravenous contrast injection. Images reviewed with lung, soft tissue and bone windows. Reconstructed coronal and sagittal MPR images reviewed. Additional 3 dimensional post-processing performed to develop Maximal Intensity Projection images (VA P). All images stored on PACS. All CT scanners at this facility use dose modulation, iterative reconstruction, and/or weight based d osing when appropriate to reduce radiation dose to as low as reasonably achievable (ALARA). [facility]: Dose Right [facility]: CareDose [facility]: Dose Right [facility]: Teradose 4D [facility]: [employer] CONTRAST TYPE AND DOSE: contrast/concentration: Isovue 370.00 mg/ml; Total Contrast Delivered: 75.0 ml; Total Saline Delivered: 100.0 ml RENAL FUNCTION: BUN 7, creatinine 0.63 RADIATION DOSE: Up-to-date CT equipment and radiation dose reduction techniques were employed. CTDIv ol: 16.5 - 17.6 mGy. DLP: 694 mGy-cm. . LIMITATIONS: None. FINDINGS: LUNGS AND PLEURA: Cavitary mass in the left upper lobe is unchanged. Scattered areas of a telectasis or scarring remain as well. No new nodules. AORTA AND GREAT VESSELS: No aneurysm or dissection. HEART: No pericardial effusion. PULMONARY ARTERIES: No emboli visualized in the main pulmonary arteries or the segmental branches. HILAR AND MEDIASTINAL STRUCTURES: No identified masses or abnormal nodes. HARDWARE: None in the chest. UPPER ABDOMEN: No significant findings. Limited exam. THYROID AND OTHER SOFT TISSUES: No masses. No adenopathy. BONES: No acute or significant finding. 3D MIPS: Confirm above findings. OTHER: No other significant finding. IMPRESSION: 1. No pulmonary emboli. 2. Cavitary mass in the left upper lobe is unchanged in appearance. TECHNICAL DOCUMENTATION: JOB ID: [id number] Quality ID # [id number]: Final reports with documentation of one or more dose reduction techniques (e.g., Au tomated exposure control, adjustment of the mA and/or kV according to patient size, use of iterative reconstruction technique) 2010 [email or web address]- All Rights Reserved
[2016-10-01 13:27] VITALS: BP 137/83
--- NOTE | 2016-10-01 17:52 | EKG REPORT ---
SEVERITY:- BORDERLINE ECG - SINUS RHYTHM PROBABLE LEFT ATRIAL ABNORMALITY BORDERLINE INFERIOR Q WAVES : Confirmed by: Mayur Adams 01-Oct-2016 17:51:20
== END 2016-10-01 13:58 | disposition home or self-care (01) ==
LOC: ER 09:48
DX: R07.9 Chest pain, unspecified (principal); R06.02 Shortness of breath; C34.92 Malignant neoplasm of unspecified part of left bronchus or lung; Z79.899 Other long term (current) drug therapy
CPT/HCPCS: 36415; 71275; 80053; 82550; 82553; 83880; 84484; 85025; 93005; 93010; 99285

== ENCOUNTER → 2017-01-24 | Outpatient (CLI) | payer MEDICAID, OTHER ==
--- NOTE | 2017-01-24 15:10 | RADIOLOGY REPORT (SQ) ---
EXAM DESCRIPTION: CT CHEST WITHOUT COMPLETED DATE/TIME: 01/24/2017 1:48 pm REASON FOR STUDY: C34.12 MALIGNANT NEOPLASM OF UPPER LOBE, LEFT BRONCHUS OR LUNG C34.12 MALIGNANT N EOPLASM OF UPPER LOBE, LEFT BRONCHUS OR TISHA COMPARISON: CT chest 10/01/2016, 08/03/2016, 06/19/2016, 02/07/2016 PET-CT 08/31/2016 TECHNIQUE: CT scan performed of the chest without intravenous contrast. Images reviewed with lung, soft tissue and bone windows. Reconstructed coronal and sagittal MPR images reviewed. All images st ored on PACS. All CT scanners at this facility use dose modulation, iterative reconstruction, and/or weight based d osing when appropriate to reduce radiation dose to as low as reasonably achievable (ALARA). [facility]: Dose Right [facility]: CareDose [facility]: Dose Right [facility]: Teradose 4D [facility]: [employer] RADIATION DOSE: CT Rad equipment meets quality standard of care and radiation dose reduction techniq ues were employed. CTDIvol: 7.7 mGy. DLP: 317 mGy-cm. mGy. LIMITATIONS: No technical limitations. FINDINGS: LUNGS AND PLEURA: Post left thoracotomy and left upper lobectomy. Surgical magalie along the left hilum. Left lower lobe is well expanded. There is minimal left posterior costophrenic sulc us pleural thickening, minimal left apical pleural thickening, and minimal bandlike scarring in the e xtreme left lung apex. Right lung is well expanded and free of focal infiltrates. Stable right apical pleural-parenchymal s carring, unchanged from 02/07/2016. There is obstructive disease in both lungs, unchanged. HILAR AND MEDIASTINAL STRUCTURES: No identified masses or abnormal nodes. Postsurgical changes left hilum. Ascending aorta 3.6 cm in diameter, similar compared to previous studies. HEART AND VASCULAR STRUCTURES: Heavy coronary artery calcifications are present UPPER ABDOMEN: No significant findings. Limited exam. THYROID AND OTHER SOFT TISSUES: No masses. No adenopathy. BONES: No significant finding. HARDWARE: No pacemaker. No permanent central line OTHER: No other significant findings. IMPRESSION: Postsurgical changes in the left chest. No CT evidence of locally recurrent lung cancer or metastatic disease in the chest TECHNICAL DOCUMENTATION: JOB ID: [id number] Quality ID # 436: Final reports with documentation of one or more dose reduction techniques (e.g., Au tomated exposure control, adjustment of the mA and/or kV according to patient size, use of iterative reconstruction technique) 2010 [employer]- All Rights Reserved
== END ==
LOC: RAD 13:31
PROVIDERS: ATTEND Internal Medicine
DX: C34.12 Malignant neoplasm of upper lobe, left bronchus or lung (principal)
CPT/HCPCS: 71250

== ENCOUNTER → 2017-04-17 | Outpatient (CLI) | payer MEDICAID, OTHER ==
[2017-04-18 07:07] LABS: HEPATITIS B SURFACE AB QUAL Non Reactive (.); HEPATITS B SURFACE ANTIGEN Negative (Negative)
== END ==
LOC: LAB 10:58
PROVIDERS: ATTEND Internal Medicine Gastroenterology
DX: R94.5 Abnormal results of liver function studies (principal)
CPT/HCPCS: 36415; 86706; 87340

== ENCOUNTER → 2017-06-28 | Outpatient (CLI) | payer MEDICAID, MEDICARE ==
--- NOTE | 2017-06-28 09:20 | RADIOLOGY REPORT (SQ) ---
EXAM DESCRIPTION: CT CHEST WITHOUT COMPLETED DATE/TIME: 06/28/2017 8:32 am REASON FOR STUDY: LUNG CA (C34.12) C34.12 MALIGNANT NEOPLASM OF UPPER LOBE, LEFT BRONCHUS OR TISHA COMPARISON: 01/24/2017. 10/01/2016. TECHNIQUE: CT scan performed of the chest without intravenous contrast. Images reviewed with lung, soft tissue and bone windows. Reconstructed coronal and sagittal MPR images reviewed. All images st ored on PACS. All CT scanners at this facility use dose modulation, iterative reconstruction, and/or weight based d osing when appropriate to reduce radiation dose to as low as reasonably achievable (ALARA). [facility]: Dose Right [facility]: CareDose [facility]: Dose Right [facility]: Teradose 4D [facility]: [employer] RADIATION DOSE: CT Rad equipment meets quality standard of care and radiation dose reduction techniq ues were employed. CTDIvol: 8.0 mGy. DLP: 346 mGy-cm. mGy. LIMITATIONS: No technical limitations. FINDINGS: LUNGS AND PLEURA: Postoperative volume loss left hemithorax. Left apical dense consolidat ion or volume loss persists. On coronal and sagittal reconstructions, this looks progressive. Small left pleural effusion, chronic. Left lung otherwise clear. Small nodular spiculated area of presum ed scar in the right upper lobe at the apex. This is unchanged. Right lung otherwise clear. HILAR AND MEDIASTINAL STRUCTURES: No identified masses or abnormal nodes. No obvious aneurysm. HEART AND VASCULAR STRUCTURES: No pericardial effusion or aneurysm. Heavy coronary calcification. UPPER ABDOMEN: No significant findings. Limited exam. THYROID AND OTHER SOFT TISSUES: No masses. No adenopathy. BONES: No significant finding. HARDWARE: None in the chest. OTHER: No other significant findings. IMPRESSION: 1. Slightly progressive opacification in the extreme left lung apex. This may simply r epresent progressive scar and atelectasis, but looks more extensive compared to December 2016. No de veloping discrete lung lesions otherwise. No change in postoperative volume loss in the left hemitho rax or small left pleural effusion or nodular scarring in the right apex. TECHNICAL DOCUMENTATION: JOB ID: [id number] Quality ID # 436: Final reports with documentation of one or more dose reduction techniques (e.g., Au tomated exposure control, adjustment of the mA and/or kV according to patient size, use of iterative reconstruction technique) 2010 [employer]- All Rights Reserved Reading location - IP/workstation name: [email or web address]
== END ==
LOC: RAD 08:22
PROVIDERS: ATTEND Internal Medicine
DX: C34.12 Malignant neoplasm of upper lobe, left bronchus or lung (principal)
CPT/HCPCS: 71250

== ENCOUNTER → 2017-09-30 | Outpatient (CLI) | payer MEDICARE ==
--- NOTE | 2017-09-30 10:05 | RADIOLOGY REPORT (SQ) ---
EXAM DESCRIPTION: CT CHEST WITHOUT COMPLETED DATE/TIME: 09/30/2017 9:12 am REASON FOR STUDY: LUNG CA C34.12 MALIGNANT NEOPLASM OF UPPER LOBE, LEFT BRONCHUS OR TISHA COMPARISON: CT-guided lung biopsy 02/15/2016 PET-CT 08/31/2016 CT chest 01/24/2017, 06/28/2017 TECHNIQUE: CT scan performed of the chest without intravenous contrast. Images reviewed with lung, soft tissue and bone windows. Reconstructed coronal and sagittal MPR images reviewed. All images st ored on PACS. All CT scanners at this facility use dose modulation, iterative reconstruction, and/or weight based d osing when appropriate to reduce radiation dose to as low as reasonably achievable (ALARA). [facility]: Dose Right [facility]: CareDose [facility]: Dose Right [facility]: Teradose 4D [facility]: [employer] RADIATION DOSE: CT Rad equipment meets quality standard of care and radiation dose reduction techniq ues were employed. CTDIvol: 7.1 mGy. DLP: 290 mGy-cm. mGy. LIMITATIONS: No technical limitations. FINDINGS: LUNGS AND PLEURA: There has been further volume loss in the left upper lobe,, with further opacification of the upper left hemithorax. On today's study, there is now cavitation in the left u pper lobe which is new compared to prior exams. Thick walled cavity with air-fluid level is present, 4.2 cm AP x 4 cm transverse by 5 cm craniocaudad. Recurrent tumor is possible. Infection is possib le. Atypical organism or TB is possible. Dr. Garcia was notified of these findings, 0945 hours 09/30. AP left lower lobe is well inflated, with minimal new patchy airspace disease in the left lower lobe axial images 55-59. This could represent atypical bacterial or TB infection. The right lung is well inflated with stable apical pleuroparenchymal scarring. No right or left pleural effusion. No pneumothorax. HILAR AND MEDIASTINAL STRUCTURES: No identified masses or abnormal nodes. No obvious aneurysm. HEART AND VASCULAR STRUCTURES: No aneurysm. No pericardial effusion. Heavy calcification of the cor onary arteries UPPER ABDOMEN: No significant findings. Limited exam. THYROID AND OTHER SOFT TISSUES: No masses. No adenopathy. BONES: No significant finding. HARDWARE: None in the chest. OTHER: No other significant findings. IMPRESSION: Further collapse and consolidation left upper lobe. There is now a thick walled cavity with air-fluid level, and new airspace disease in the left lower lobe. Findings are worrisome for in fection with atypical organism or tuberculosis TECHNICAL DOCUMENTATION: JOB ID: [id number] Quality ID # 436: Final reports with documentation of one or more dose reduction techniques (e.g., Au tomated exposure control, adjustment of the mA and/or kV according to patient size, use of iterative reconstruction technique) 2010 [employer]- All Rights Reserved Reading location - IP/workstation name: [email or web address]
== END ==
LOC: RAD 08:55
PROVIDERS: ATTEND Internal Medicine
DX: C34.12 Malignant neoplasm of upper lobe, left bronchus or lung (principal); J98.19 Other pulmonary collapse
CPT/HCPCS: 71250

== ENCOUNTER → 2017-10-23 | Outpatient (CLI) | payer MEDICARE ==
[2017-10-23 12:45] LABS: ABSOLUTE LYMPHOCYTES (AUTO) 0.7 10^3/uL (0.5-4.7); ABSOLUTE MONOCYTES (AUTO) 0.5 10^3/uL (0.1-1.4); ABSOLUTE NEUT (AUTO) 2.8 10^3/uL (1.7-8.2); BASOPHILS % (AUTO) 0.5 % (0-2); HEMATOCRIT 51.3 % (37.9-51.0); HEMOGLOBIN 17.4 g/dL (13.5-17.0); LYMPHOCYTES % (AUTO) 17.3 % (13-45); MEAN CORPUSCULAR HEMOGLOBIN 32.2 pg (27.0-33.4); MEAN CORPUSCULAR VOLUME 95 fl (80-97); MONOCYTES % (AUTO) 13.3 % (3-13); PLATELET COUNT 276 10^3/uL (150-450); RED BLOOD COUNT 5.42 10^6/uL (4.35-5.55); SEGMENTED NEUTROPHILS % (AUTO) 67.9 % (42-78); TOTAL CELLS COUNTED % (AUTO) 100 %; WHITE BLOOD COUNT 4.1 10^3/uL (4.0-10.5)
[2017-10-23 12:55] LABS: INTERNATIONAL RATION (INR) 1.04; PARTIAL THROMBOPLASTIN TIME 31.8 SEC (23.5-35.8); PROTHROMBIN TIME 14.2 SEC (11.4-15.4)
[2017-10-23 13:22] LABS: ANION GAP 15 (5-19); BLOOD UREA NITROGEN 4 mg/dL (7-20); CALCIUM 9.5 mg/dL (8.4-10.2); CARBON DIOXIDE 27 mmol/L (22-30); CHLORIDE 97 mmol/L (98-107); GLUCOSE 92 mg/dL (75-110); POTASSIUM 5.5 mmol/L (3.6-5.0); SODIUM 138.7 mmol/L (137-145)
== END ==
LOC: OD 11:47
PROVIDERS: ATTEND Internal Medicine Critical Care Medicine
DX: J98.4 Other disorders of lung (principal); C34.90 Malignant neoplasm of unspecified part of unspecified bronchus or lung; J44.9 Chronic obstructive pulmonary disease, unspecified; R06.09 Other forms of dyspnea; Z98.890 Other specified postprocedural states; Z87.891 Personal history of nicotine dependence
CPT/HCPCS: 36415; 80048; 85025; 85610; 85730

== ENCOUNTER 2017-10-24 06:18 | Day surgery (SDC) | payer MEDICARE ==
[2017-10-24] MEDS ORDERED: LIDOCAINE 2% JELLY 30 ML TUBE ONE (07:19)
[2017-10-24] MEDS ORDERED: DIPHENHYDRAMINE HCL 50 MG/ML VIAL ONE (07:19)
[2017-10-24] MEDS ORDERED: ONDANSETRON HCL INJ/PF 4 MG/2 ML SDV ONE (07:19)
[2017-10-24] MEDS ORDERED: GLUCAGON,HUMAN RECOMB 1 MG INJ ONE (07:20)
[2017-10-24] MEDS ORDERED: EPINEPHRINE INJ 1 MG/10 ML DISP.SYRIN ONE (07:20)
[2017-10-24] MEDS ORDERED: FLUMAZENIL INJ 0.5 MG/5 ML VIAL ONE (07:20)
[2017-10-24] MEDS ORDERED: NALOXONE HCL INJ/PF 0.4 MG/1 ML SDV ONE (07:20)
--- NOTE | 2017-10-24 07:51 | EKG REPORT ---
SEVERITY:- ABNORMAL ECG - SINUS RHYTHM MULTIPLE ATRIAL PREMATURE COMPLEXES GABINO, CONSIDER BIATRIAL ABNORMALITIES PROBABLE INFERIOR INFARCT, OLD : Confirmed by: Jose Nolan MD 24-Oct-2017 07:50:45
[2017-10-24 08:09] LABS: ANION GAP 15 (5-19); BLOOD UREA NITROGEN 3 mg/dL (7-20); CALCIUM 8.6 mg/dL (8.4-10.2); CARBON DIOXIDE 22 mmol/L (22-30); CHLORIDE 101 mmol/L (98-107); GLUCOSE 95 mg/dL (75-110); POTASSIUM 5.2 mmol/L (3.6-5.0)
[2017-10-24] MEDS: LIDOCAINE 2% INJ (20 MG/ML) 20 ML MDV ONE ×3 (08:27→09:00)
[2017-10-24] MEDS: MIDAZOLAM 2 MG/2 ML INJ ONE ×10 (08:39→08:57)
[2017-10-24] MEDS: FENTANYL CITRATE INJ/PF 100 MCG/2 ML AMPUL ONE ×3 (08:46→08:55)
[2017-10-24 10:20] VITALS: BP 121/79
[2017-10-24 11:13] LABS: FLUID SOURCE LUNG; FLUID TYPE BRONCHIAL LAVAGE
[2017-10-24 11:14] LABS: FLUID APPEARANCE SLIGHTLY HAZY; FLUID COLOR COLORLESS; FLUID VISCOSITY LIQUID
--- NOTE | 2017-10-24 11:41 | OPERATIVE REPORT E ---
Operative Report NAME: DOC LOMELI : 1955 AGE: 62Y DATE OF SURGERY: 10/24/2017 ROOM: HISTORY: The patient is a 62-year-old female who came in with chronic cough with blood streaked sputum production over the last 2-3 weeks. Presented with a cavitation involving the left lung. The patient is status post left upper lobe lobectomy last year. He had a chest CT scan June this year and there was no lesion and repeat CAT scan in September showing cavitation involving the left upper lobe. Sputum culture was positive for Pseudomonas last week. PROCEDURE: Flexible bronchoscopy with bronchial washing and bronchial alveolar lavage involving the left upper lobe. SURGEON: ANNE BERGMAN M.D. INDICATION: Hemoptysis and cavitation involving the left upper lobe, possible infectious etiology. ANESTHESIA: 2% lidocaine solution, total dose of 18 mL. Sedation is conscious sedation using IV Versed, total dose of 7 mg and IV fentanyl, total dose of 75 mcg. BLOOD LOSS: None. COMPLICATIONS: None. OPERATIVE NOTE: Consent was obtained from the patient. The patient verbalized understanding of the indications, risks, and potential complications of procedure. The patient was connected to the supply manager, pulse oximetry, blood pressure monitor, respiratory monitor. The patient was given 2% lidocaine solution 3 mL via nebulizer and 2% lidocaine solution 3 mL applied to the posterior pharyngeal wall via atomizer, and 1% lidocaine gel was applied to the posterior pharyngeal area using a cotton swab. Versed was given in increments of 0.5 mg, total dose of 7 mg, and fentanyl was given in increments of 25 mcg to a total dose of 75 mcg. The flexible bronchoscope was inserted through the mouthguard. Vocal cords were visualized. Lidocaine 1% solution 1 mL was applied to the posterior pharyngeal area and the vocal cords and the vocal cord appeared normal. Trachea appeared normal. The 1% lidocaine solution was applied to the trachea, seymour, right mainstem bronchus, left mainstem bronchus, and segmental airways and flexible bronchoscope was advanced. The right mainstem bronchus, the right upper lobe segmental bronchi, the right middle lobe segmental bronchi, and the right lower lobe segmental bronchi appeared normal. There are no endobronchial lesions noted. In the left upper lobe, the scar from lobectomy was noted medially. This was distortion of the bronchial anatomy on the left lung. The left upper lung was localized. Bronchial washing and bronchial lavage was performed. No bleeding was noted. No endobronchial lesion was noted. Bronchoalveolar lavage was performed on the left upper lung twice. Bronchoalveolar lavage and bronchial washing will be sent for cytology and microbiology for acid-fast bacillus, bacteria, and fungi. The patient tolerated the procedure very well. There were no adverse events. DICTATING PHYSICIAN: ANNE BERGMAN MD,ARABELLA,MPH [id number] PHY#: [id number] ID: [id number] JOB#: [id number] ACCT: [id number] cc:ANNE BERGMAN M.D. > MTDElizabeth
== END 2017-10-24 10:10 | disposition home or self-care (01) ==
LOC: END 06:18
PROVIDERS: ATTEND Internal Medicine Critical Care Medicine
DX: J98.4 Other disorders of lung (principal); J42 Unspecified chronic bronchitis; J18.9 Pneumonia, unspecified organism; Z79.51 Long term (current) use of inhaled steroids; Z79.899 Other long term (current) drug therapy; Z79.1 Long term (current) use of non-steroidal anti-inflammatories (NSAID); Z87.891 Personal history of nicotine dependence; Z85.118 Personal history of other malignant neoplasm of bronchus and lung
CPT/HCPCS: 31624; 36415; 87070; 87205; 87206; 87116; 87101; 89050; 80048; 87015; 88162; 88104 ×2; 93005; 93010; J2250; J3490; J3010; J0171; J1200; J1610; J2310; J2405

== ENCOUNTER → 2017-12-09 | Outpatient (CLI) | payer MEDICARE ==
--- NOTE | 2017-12-09 13:31 | RADIOLOGY REPORT (SQ) ---
EXAM DESCRIPTION: CT CHEST WITHOUT COMPLETED DATE/TIME: 12/09/2017 10:31 am REASON FOR STUDY: CAVITARY LUNG DISEASE J98.4 OTHER DISORDERS OF LUNG COMPARISON: 09/30/2017 TECHNIQUE: CT scan performed of the chest without intravenous contrast. Images reviewed with lung, soft tissue and bone windows. Reconstructed coronal and sagittal MPR images reviewed. All images st ored on PACS. All CT scanners at this facility use dose modulation, iterative reconstruction, and/or weight based d osing when appropriate to reduce radiation dose to as low as reasonably achievable (ALARA). [facility]: Dose Right [facility]: CareDose [facility]: Dose Right [facility]: Teradose 4D [facility]: [employer] RADIATION DOSE: CT Rad equipment meets quality standard of care and radiation dose reduction techniq ues were employed. CTDIvol: 9.8 mGy. DLP: 410 mGy-cm. mGy. LIMITATIONS: No technical limitations. FINDINGS: LUNGS AND PLEURA: Cavitary lesion in the left apex. There is overall decrease in tumor bu lk. On the coronal images there is significant thinning of the tumor evident inferiorly especially. HILAR AND MEDIASTINAL STRUCTURES: Left hilum is elevated. HEART AND VASCULAR STRUCTURES: No aneurysm. No pericardial effusion. UPPER ABDOMEN: No significant findings. Limited exam. THYROID AND OTHER SOFT TISSUES: No masses. No adenopathy. BONES: No significant finding. HARDWARE: None in the chest. OTHER: No other significant findings. IMPRESSION: There is significant improvement in the appearance of the chest. There is still conside rable apical soft tissue thickness. This may represent scarring. Along the inferior margin of the c avitary lesion there is almost imperceptible thickness. TECHNICAL DOCUMENTATION: JOB ID: [id number] Quality ID # 436: Final reports with documentation of one or more dose reduction techniques (e.g., Au tomated exposure control, adjustment of the mA and/or kV according to patient size, use of iterative reconstruction technique) 2010 [employer] All Rights Reserved Reading location - IP/workstation name: [email or web address]
== END ==
LOC: RAD 10:17
PROVIDERS: ATTEND Internal Medicine Critical Care Medicine
DX: J98.4 Other disorders of lung (principal)
CPT/HCPCS: 71250

== ENCOUNTER → 2018-03-10 | Outpatient (CLI) | payer MEDICARE ==
--- NOTE | 2018-03-10 10:29 | RADIOLOGY REPORT (SQ) ---
EXAM DESCRIPTION: CT CHEST WITHOUT COMPLETED DATE/TIME: 03/10/2018 9:00 am REASON FOR STUDY: LUNG CA C34.12 MALIGNANT NEOPLASM OF UPPER LOBE, LEFT BRONCHUS OR TISHA COMPARISON: PET-CT 08/31/2016 CT chest 02/07/2016, 10/01/2016, 06/28/2017, 09/30/2017, 12/09/2017 TECHNIQUE: CT scan performed of the chest without intravenous contrast. Images reviewed with lung, soft tissue and bone windows. Reconstructed coronal and sagittal MPR images reviewed. All images st ored on PACS. All CT scanners at this facility use dose modulation, iterative reconstruction, and/or weight based d osing when appropriate to reduce radiation dose to as low as reasonably achievable (ALARA). [facility]: Dose Right [facility]: CareDose [facility]: Dose Right [facility]: Teradose 4D [facility]: [employer] RADIATION DOSE: CT Rad equipment meets quality standard of care and radiation dose reduction techniq ues were employed. CTDIvol: 8.6 mGy. DLP: 362 mGy-cm. mGy. LIMITATIONS: No technical limitations. FINDINGS: LUNGS AND PLEURA: Patient is post old left upper lobectomy in 2017. On the current study, at the upper left hemithorax, there is a thin walled air filled cavity with api mariano scarring. The thin walled cavity now measures about 5 cm in size (was about 4 cm in size on 11/25). However, the rind of soft tissue around the periphery of the mass is thinner on the current study. There is volume loss in the left hemithorax with elevation of the left hilum and left hemidiaphragm a nd surgical clips along the left hilum. In the right lung apex, a bandlike scar is present 8 to 9 mm in size unchanged from studies dating ba to 2016, benign. No acute infiltrates. No pleural effusion. No pneumothorax. HILAR AND MEDIASTINAL STRUCTURES: Post therapeutic changes left hilum. No worrisome mediastinal lemuel opathy HEART AND VASCULAR STRUCTURES: No aneurysm. No pericardial effusion. Heavily Calcified coronary art eries UPPER ABDOMEN: No significant findings. Limited exam. THYROID AND OTHER SOFT TISSUES: No masses. No adenopathy. BONES: No significant finding. HARDWARE: None in the chest. OTHER: No other significant findings. IMPRESSION: Stable appearance of the chest compared to 12/09/2017 TECHNICAL DOCUMENTATION: JOB ID: [id number] Quality ID # [id number]: Final reports with documentation of one or more dose reduction techniques (e.g., Au tomated exposure control, adjustment of the mA and/or kV according to patient size, use of iterative reconstruction technique) 2010 [employer]- All Rights Reserved Reading location - IP/workstation name: [email or web address]
== END ==
LOC: RAD 08:40
PROVIDERS: ATTEND Internal Medicine
DX: C34.12 Malignant neoplasm of upper lobe, left bronchus or lung (principal)
CPT/HCPCS: 71250

== ENCOUNTER → 2018-03-21 | Outpatient (CLI) | payer MEDICARE ==
--- NOTE | 2018-03-21 15:16 | RADIOLOGY REPORT (SQ) ---
EXAM DESCRIPTION: CT ABD/PELVIS WITH IV ORAL COMPLETED DATE/TIME: 03/21/2018 2:48 pm REASON FOR STUDY: C34.12 MALIGNANT NEOPLASM OF UPPER LOBE, LEFT BRONCHUS OR LUNG C34.12 MALIGNANT N EOPLASM OF UPPER LOBE, LEFT BRONCHUS OR TISHA COMPARISON: None. TECHNIQUE: CT scan of the abdomen and pelvis performed using helical scanning technique with dynamic intravenous contrast injection. Oral contrast. Images reviewed with lung, soft tissue, and bone win dows. Reconstructed coronal and sagittal MPR images reviewed. Delayed images for evaluation of the ur inary system also acquired. All images stored on PACS. All CT scanners at this facility use dose modulation, iterative reconstruction, and/or weight based d osing when appropriate to reduce radiation dose to as low as reasonably achievable (ALARA). [facility]: Dose Right [facility]: CareDose [facility]: Dose Right [facility]: Teradose 4D [facility]: [employer] CONTRAST TYPE AND DOSE: contrast/concentration: Isovue 350.00 mg/ml; Total Contrast Delivered: 100.0 ml; Total Saline Delivered: 72.0 ml RENAL FUNCTION: BUN 8 creatinine 0.9 RADIATION DOSE: CT Rad equipment meets quality standard of care and radiation dose reduction techniq ues were employed. CTDIvol: 9.4 - 10.8 mGy. DLP: 1061 mGy-cm.. LIMITATIONS: None. FINDINGS: LOWER CHEST: No significant findings. No nodules or infiltrates. LIVER: Normal size. No masses. No dilated ducts. SPLEEN: Normal size. No focal lesions. PANCREAS: No masses. No significant calcifications. No adjacent inflammation or peripancreatic fluid collections. Pancreatic duct not dilated. GALLBLADDER: No identified stones by CT criteria. No inflammatory changes to suggest cholecystitis. ADRENAL GLANDS: No significant masses or asymmetry. RIGHT KIDNEY AND URETER: No solid masses. No significant calcifications. No hydronephrosis or hyd roureter. LEFT KIDNEY AND URETER: No solid masses. No significant calcifications. No hydronephrosis or hydr oureter. AORTA AND VESSELS: No aneurysm. No dissection. Renal arteries, SMA, celiac without stenosis. RETROPERITONEUM: No retroperitoneal adenopathy, hemorrhage or masses. BOWEL AND PERITONEAL CAVITY: Mild diverticulosis. No acute inflammation. No obvious bowel mass. APPENDIX: Surgically absent. PELVIS: No mass. No free fluid. Normal bladder. ABDOMINAL WALL: No masses. No hernias. BONES: No significant or acute findings. OTHER: No other significant finding. IMPRESSION: Mild diverticulosis coli. No acute findings in the abdomen or pelvis. TECHNICAL DOCUMENTATION: JOB ID: [id number] Quality ID # [id number]: Final reports with documentation of one or more dose reduction techniques (e.g., Au tomated exposure control, adjustment of the mA and/or kV according to patient size, use of iterative reconstruction technique) 2010 [employer]- All Rights Reserved Reading location - IP/workstation name: [email or web address]
== END ==
LOC: RAD 15:48
PROVIDERS: ATTEND Internal Medicine
DX: C34.12 Malignant neoplasm of upper lobe, left bronchus or lung (principal); K57.32 Diverticulitis of large intestine without perforation or abscess without bleeding
CPT/HCPCS: 74177

== ENCOUNTER → 2018-06-09 | Outpatient (CLI) | payer MEDICARE ==
--- NOTE | 2018-06-09 14:23 | RADIOLOGY REPORT (SQ) ---
EXAM DESCRIPTION: CT CHEST WITHOUT COMPLETED DATE/TIME: 06/09/2018 9:41 am REASON FOR STUDY: LUNG CA C34.12 MALIGNANT NEOPLASM OF UPPER LOBE, LEFT BRONCHUS OR TISHA COMPARISON: 03/10/2018 TECHNIQUE: CT scan performed of the chest without intravenous contrast. Images reviewed with lung, soft tissue and bone windows. Reconstructed coronal and sagittal MPR images reviewed. All images st ored on PACS. All CT scanners at this facility use dose modulation, iterative reconstruction, and/or weight based d osing when appropriate to reduce radiation dose to as low as reasonably achievable (ALARA). [facility]: Dose Right [facility]: CareDose [facility]: Dose Right [facility]: Teradose 4D [facility]: [employer] RADIATION DOSE: CT Rad equipment meets quality standard of care and radiation dose reduction techniq ues were employed. CTDIvol: 9.0 mGy. DLP: 368 mGy-cm. mGy. LIMITATIONS: No technical limitations. FINDINGS: LUNGS AND PLEURA: Reduced volume in the left hemithorax. Prior upper lobectomy. There is apical pleural thickening. There is once again seen is small thin walled collection of air in the l eft apex, unchanged. There is stable scarring in the right upper lobe. There is no pulmonary nodule . HILAR AND MEDIASTINAL STRUCTURES: No identified masses or abnormal nodes. No obvious aneurysm. HEART AND VASCULAR STRUCTURES: No aneurysm. No pericardial effusion. Extensive coronary atheroscler osis. UPPER ABDOMEN: No significant findings. Limited exam. THYROID AND OTHER SOFT TISSUES: No masses. No adenopathy. BONES: No significant finding. HARDWARE: None in the chest. OTHER: No other significant findings. IMPRESSION: Stable findings in the chest. Scarring in the right upper lobe. Apical pleural thicken ing on the left with stable left pneumatocoele versus loculated air in the pleural space. Coronary a therosclerosis. TECHNICAL DOCUMENTATION: JOB ID: [id number] Quality ID # 436: Final reports with documentation of one or more dose reduction techniques (e.g., Au tomated exposure control, adjustment of the mA and/or kV according to patient size, use of iterative reconstruction technique) 2010 [employer]- All Rights Reserved Reading location - IP/workstation name: [email or web address]
== END ==
LOC: WI 09:28
PROVIDERS: ATTEND Internal Medicine
DX: C34.12 Malignant neoplasm of upper lobe, left bronchus or lung (principal)
CPT/HCPCS: 71250

== ENCOUNTER → 2018-09-08 | Outpatient (CLI) | payer MEDICARE ==
--- NOTE | 2018-09-08 15:24 | RADIOLOGY REPORT (SQ) ---
EXAM DESCRIPTION: CT CHEST WITHOUT COMPLETED DATE/TIME: 09/08/2018 2:18 pm REASON FOR STUDY: C34.12 MALIGNANT NEOPLASM OF UPPER LOBE, LEFT BRONCHUS OR LUNG C34.12 MALIGNANT N EOPLASM OF UPPER LOBE, LEFT BRONCHUS OR TISAH COMPARISON: 06/09/2018 TECHNIQUE: CT scan performed of the chest without intravenous contrast. Images reviewed with lung, soft tissue and bone windows. Reconstructed coronal and sagittal MPR images reviewed. All images st ored on PACS. All CT scanners at this facility use dose modulation, iterative reconstruction, and/or weight based d osing when appropriate to reduce radiation dose to as low as reasonably achievable (ALARA). [facility]: Dose Right [facility]: CareDose [facility]: Dose Right [facility]: Teradose 4D [facility]: [employer] RADIATION DOSE: CT Rad equipment meets quality standard of care and radiation dose reduction techniq ues were employed. CTDIvol: 9.1 mGy. DLP: 373 mGy-cm. mGy. LIMITATIONS: No technical limitations. FINDINGS: LUNGS AND PLEURA: Left upper lobectomy. Left apical pleural thickening. Stable cavitary lesion or pneumatocele in the left apex. No developing nodules. No effusions. HILAR AND MEDIASTINAL STRUCTURES: No identified masses or abnormal nodes. No obvious aneurysm. HEART AND VASCULAR STRUCTURES: No aneurysm. No pericardial effusion. UPPER ABDOMEN: No significant findings. Limited exam. THYROID AND OTHER SOFT TISSUES: No masses. No adenopathy. BONES: No significant finding. HARDWARE: None in the chest. OTHER: No other significant findings. IMPRESSION: Stable postsurgical changes in the left lung. TECHNICAL DOCUMENTATION: JOB ID: [id number] Quality ID # [id number]: Final reports with documentation of one or more dose reduction techniques (e.g., Au tomated exposure control, adjustment of the mA and/or kV according to patient size, use of iterative reconstruction technique) 2010 [email or web address]- All Rights Reserved Reading location - IP/workstation name: [email or web address]
== END ==
LOC: RAD 08:42
PROVIDERS: ATTEND Physician Assistant Medical
DX: C34.12 Malignant neoplasm of upper lobe, left bronchus or lung (principal)
CPT/HCPCS: 71250

== ENCOUNTER → 2019-03-12 | Outpatient (CLI) | payer MEDICARE ==
--- NOTE | 2019-03-12 13:44 | RADIOLOGY REPORT (SQ) ---
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 Images reviewed with lung, soft tissue and bone windows. Reconstructed coronal and sagittal MPR images reviewed. All images st ored on PACS. All CT scanners at this facility use dose modulation, iterative reconstruction, and/or weight based d osing when appropriate to reduce radiation dose to as low as reasonably achievable (ALARA). [facility]: Dose Right [facility]: CareDose [facility]: Dose Right [facility]: Teradose 4D [facility]: [employer] RADIATION DOSE: CT Rad equipment meets quality standard of care and radiation dose reduction techniq ues were employed. CTDIvol: 9.6 mGy. DLP: 384 mGy-cm. mGy. LIMITATIONS: No technical limitations. FINDINGS: LUNGS AND PLEURA: Left upper lobectomy changes. Pleural thickening. Stable pneumatocoele in the left apex. HILAR AND MEDIASTINAL STRUCTURES: No identified masses or abnormal nodes. No obvious aneurysm. HEART AND VASCULAR STRUCTURES: No aneurysm. No pericardial effusion. UPPER ABDOMEN: No significant findings. Limited exam. THYROID AND OTHER SOFT TISSUES: No masses. No adenopathy. BONES: No significant finding. HARDWARE: None in the chest. OTHER: No other significant findings. IMPRESSION: Stable surgical changes on the left. No acute cardiopulmonary findings. TECHNICAL DOCUMENTATION: JOB ID: [id number] Quality ID # 436: Final reports with documentation of one or more dose reduction techniques (e.g., Au tomated exposure control, adjustment of the mA and/or kV according to patient size, use of iterative reconstruction technique) 2010 [employer]- All Rights Reserved Reading location - IP/workstation name: [email or web address]
== END ==
LOC: RAD 08:56
PROVIDERS: ATTEND Physician Assistant Medical
DX: C34.12 Malignant neoplasm of upper lobe, left bronchus or lung (principal)
CPT/HCPCS: 71250

== ENCOUNTER → 2019-09-11 | Outpatient (CLI) | payer MEDICARE ==
--- NOTE | 2019-09-11 08:38 | RADIOLOGY REPORT (SQ) ---
EXAM DESCRIPTION: CT CHEST WITHOUT IMAGES COMPLETED DATE/TIME: 09/11/2019 7:42 am REASON FOR STUDY: LUNG CANCER (C34.12) C34.12 MALIGNANT NEOPLASM OF UPPER LOBE, LEFT BRONCHUS OR TISHA COMPARISON: 03/12/2019 TECHNIQUE: CT scan performed of the chest without intravenous contrast. Images reviewed with lung, soft tissue and bone windows. Reconstructed coronal and sagittal MPR images reviewed. All images st ored on PACS. All CT scanners at this facility use dose modulation, iterative reconstruction, and/or weight based d osing when appropriate to reduce radiation dose to as low as reasonably achievable (ALARA). [facility]: Dose Right [facility]: CareDose [facility]: Dose Right [facility]: Teradose 4D [facility]: [employer] RADIATION DOSE: CT Rad equipment meets quality standard of care and radiation dose reduction techniq ues were employed. CTDIvol: 10.8 mGy. DLP: 468 mGy-cm. mGy. LIMITATIONS: No technical limitations. FINDINGS: LUNGS AND PLEURA: Post surgical changes on the left with volume loss. There is scarring i n the left apex. Small spiculated nodule in the right upper lobe is unchanged as well most likely sc ar. No consolidation or effusions. No new findings. HILAR AND MEDIASTINAL STRUCTURES: No identified masses or abnormal nodes. No obvious aneurysm. HEART AND VASCULAR STRUCTURES: No aneurysm. No pericardial effusion. UPPER ABDOMEN: No significant findings. Limited exam. THYROID AND OTHER SOFT TISSUES: No masses. No adenopathy. BONES: Stable mild wedging of T12 unchanged from prior exam. HARDWARE: None in the chest. OTHER: No other significant findings. IMPRESSION: Stable unenhanced CT of the chest with postsurgical changes on the left. Scarring in eunice th apices left greater than right. TECHNICAL DOCUMENTATION: JOB ID: [id number] Quality ID # 436: Final reports with documentation of one or more dose reduction techniques (e.g., Au tomated exposure control, adjustment of the mA and/or kV according to patient size, use of iterative reconstruction technique) 2010 [employer]- All Rights Reserved Reading location - IP/workstation name: [email or web address]
== END ==
LOC: RAD 07:12
PROVIDERS: ATTEND Internal Medicine
DX: C34.12 Malignant neoplasm of upper lobe, left bronchus or lung (principal)
CPT/HCPCS: 71250